=== PATIENT | male | born 1940 | race Caucasian/White ===

== ENCOUNTER 2020-12-16 10:43 | Emergency (ER) | payer MEDICARE, SELFPAY ==
[2020-12-16 11:02] VITALS: BP 111/67; PULSE 70; RESP 22; TEMP 36.7; O2SAT 99; BMI 35.4
--- NOTE | 2020-12-16 11:14 | ECG_ITS ---
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 Measurements Intervals [place] Rate: 66 P: 204 TX: 202 QRS: 227 QRSD: 104 T: -79 QT: 393 QTc: 413 Interpretive Statements ATRIAL FIBRILLATION POSSIBLE RIGHT VENTRICULAR HYPERTROPHY [SOME/ALL OF: PROMINENT R IN V1, LATE TRANSITION, RAD, SOM, SSS] INFERIOR MYOCARDIAL INFARCTION , OF INDETERMINATE AGE [40+ ms Q WAVE AND/OR ST/T ABNORMALITY IN II/aVF] No previous ECG available for comparison Electronically Signed On 12-16-2020 18:25:01 CDT by Ousmane Rowan M.D. [id number]
--- NOTE | 2020-12-16 11:15 | ED_ITS ---
HPI - Chest Pain General: Chief Complaint: Chest Pain Stated Complaint: Chest Pain Time Seen by Provider: 12/16/20 11:03 Source: patient and family () Mode of arrival: ambulatory Limitations: no limitations History of Present Illness: HPI narrative: This is a 80-year-old male with a history of hypertension, congestive heart failure, valvular heart disease who presents to the emergency department with complaints of chest pain started about 3 days ago. Pain is retrosternal radiates to both shoulders and between his shoulder blades. Also radiates to the left side of his chest. Pain is intermittent and is not improving. He has taken several sublingual nitroglycerin tablets and it helps with the pain temporarily. He denies diaphoresis, nausea or vomiting. He also has a headache. He has no prior history of [place]. MD complaint: chest pain Onset (ago): day(s) (3) Timing of current episode: episodic Onset: during rest Pain location: substernal Pain radiation: back, left shoulder and right shoulder Severity: moderate Quality: heaviness Relieving factors: nitroglycerin Exacerbating factors: nothing Associated symptoms: Deny abdominal pain, diaphoresis, dyspnea, fever(s), leg edema, nausea, palpitations, sense of impending doom, syncope or vomiting Treatment prior to arrival: nitroglycerin Review of Systems General: Reports: 10 or more systems reviewed and unremarkable except in HPI and below Const: Denies: fever(s) or diaphoresis Card: Denies: palpitations or syncope Resp: Denies: dyspnea GI: Denies: abdominal pain, nausea or vomiting Physical Exam Const: COMMON NORMALS: no acute distress, average body habitus, patient oriented x3, no limitations, healthy appearing, alert and well nourished HENMT: COMMON NORMALS: normocephalic, atraumatic and moist oral mucous membranes HEAD & SCALP: normocephalic and atraumatic Neck/C-Spine: COMMON NORMALS: no meningeal signs and no JVD Resp: COMMON NORMALS: normal respiratory effort, No retractions, No use of accessory muscles, clear to auscultation bilaterally and percussion normal AUSCULTATION: clear to auscultation bilaterally PERCUSSION: percussion normal Cardio: COMMON NORMALS: no JVD, regular rate, regular rhythm, S1 normal heart sound present, S2 normal heart sound present, No gallops present (Cardio), No clicks present (Cardio), No murmurs present (Cardio), No rub (Cardio) and Peripheral pulses 2+ throughout RATE: regular rate RHYTHM: regular rhythm HEART SOUNDS: S1 normal heart sound present and S2 normal heart sound present PERIPHERAL PULSES: Peripheral pulses 2+ throughout GI: COMMON NORMALS: Normal to inspection, nondistended, normoactive bowel sounds present, Soft to palpation, non-tender, No hepatosplenomegaly present, no masses and no bruits PALPATION: Yes Soft to palpation and Yes No hepatosplenomegaly present Extremity: COMMON NORMALS: normal to inspection, full ROM, capillary refill normal, no calf tenderness and no pedal edema Neuro: COMMON NORMALS: patient oriented x3 SENSORIUM/ORIENTATION: Yes alert MENINGEAL SIGNS: Yes no meningeal signs Skin: COMMON NORMALS: no rashes or lesions noted, no wounds, turgor normal, no jaundice, no petechiae and no mottling GENERAL SKIN EXAM: no rashes or lesions noted and turgor normal Course ED course: 1228: Discussed the patient with Dr. Rowan, cutting and creasing press operator. He advised that the patient be anticoagulated and admitted to the hospitalist service and he will evaluate the patient as a consult. 1230: Discussed the patient with Dr. Lozada, hospitalist and he kindly accepted the patient to his service. 1245: Discussed the patient's lab and imaging findings with the patient and his , also discussed my conversations with the hospitalist and the cutting and creasing press operator. The patient and his wants the patient transferred to [facility] in [place] as that is where his cutting and creasing press operator is located. He would love to continue his care there which I think is reasonable. 1300: Discussed the patient with Ken at [facility] transfer center, he will contact the cutting and creasing press operator to hospitalist and return my call. 1311: Ken from the transfer center at [facility] called back. He states that the cutting and creasing press operator think they will admit the patient but he would want to know the results of the 2-hour troponin, results of the CTA of his chest and to also let the patient know that his cutting and creasing press operator, Dr. Gross, who is not on-call and will not see him during his hospital stay. 1315: Updated the patient and his on my conversation with the [facility] transfer center. Explained to them that their cutting and creasing press operator will not see him during his hospital stay. He voiced understanding and they are still in agreement with the plan to transfer. 1432: Discussed the patient with SANJANA Arias for the cardiology group at [facility] in [place]. She believes the patient can be admitted to their service, the admitting physician will be Dr. Batista. Vital Signs: Vital signs: Vital Signs Temperature 98.0 F 12/16/20 11:02 Pulse Rate 67 12/16/20 16:01 Respiratory Rate 18 12/16/20 16:01 Blood Pressure 102/65 12/16/20 16:01 Pulse Oximetry 97 12/16/20 16:01 MDM - Chest Pain MDM Narrative: Medical decision making narrative: This 80-year-old male presented to the emergency department with a 3-day history of chest pain. Chest pain started when he was splitting wood. In the emergency department evaluation is consistent with a non-STEMI with a significantly elevated troponin. He was to be admitted in this facility but the patient and his wanted to be transferred to [facility] which is where his cutting and creasing press operator is and is where he obtains his care. The patient is therefore transferred to [facility] for further evaluation and management. Medical Records: Attestation: I reviewed the patient's medical records. Lab Data: Attestation: I reviewed the patient's lab results. Labs: Lab Results 12/16/20 12/16/20 12/16/20 Range/Units 11:22 11:22 11:22 WBC 7.2 (4.0-10.0) 10^3/ uL RBC 4.32 (4.1-5.3) 10^6/u L Hgb 11.4 L (11.7-16.6) g/dL Hct 36.9 L (42.0-52.0) % MCV 85.4 (80-94) fL MCH 26.4 L (28.0-34.0) pg MCHC 30.9 (30.0-36.0) g/dL RDW 14.4 (12.1-15.1) % Plt Count 348 (130-400) 10^3/c mm MPV 9.3 (7.4-10.4) fL Neut % (Auto) 69.5 % Lymph % (Auto) 15.5 % [place] % (Auto) 10.1 % Eos % (Auto) 3.5 % Baso % (Auto) 1.0 % Neut # (Auto) 5.03 (1.8-7.7) 10^3/u L Lymph # (Auto) 1.1 (0.8-4.8) 10^3/u L [place] # (Auto) 0.7 (0.2-0.9) 10^3/u L Eos # (Auto) 0.3 (0.0-0.8) 10^3/u L Baso # (Auto) 0.1 (0.0-0.1) 10^3/u L Nucleated RBC % (a uto) 0 % Nucleated RBCs # 0.0 /100WBC PT 13.90 (12.1-14.9) SECO NDS INR 1.04 (0.8-1.2) D-Dimer 1.23 H (0-0.59) ug/mIFE U Sodium 136 (136-145) mmol/L Potassium 4.8 (3.5-5.1) mmol/L Chloride 101 (98-107) mmol/L Carbon Dioxide 26 (22-29) mmol/L Anion Gap 13.8 (5-19) BUN 22 (8-23) mg/dL Creatinine 1.4 H (0.7-1.2) mg/dL GFR Calculation Not Reportable Glucose 263 H (65-115) mg/dL Calculated Osmolal ity 294 (285-295) mOsm/k g Calcium 8.9 (8.5-10.5) mg/dL Total Bilirubin 0.3 (0.15-1.2) mg/dL AST 16 (0-40) U/L ALT 11 (0-41) U/L Alkaline Phosphata se 87 (40-130) IU/L Troponin T Baselin e (0-15) ng/L Troponin T 120 Min marisa (0-15) ng/L Delta Troponin T (0-10) ABS# NT-Pro-B Natriuret Pep 1752 H (0-450) pg/mL Total Protein 6.6 (6.6-8.7) g/dL Albumin 4.0 (3.5-5.2) g/dL Globulin 2.6 (1.3-4.6) g/dL Lipase 17 (13-60) U/L SARS-CoV-2 Ag (Rap id) (Negative) 12/16/20 12/16/20 12/16/20 Range/Units 11:22 13:15 13:19 WBC (4.0-10.0) 10^3/ uL RBC (4.1-5.3) 10^6/u L Hgb (11.7-16.6) g/dL Hct (42.0-52.0) % MCV (80-94) fL MCH (28.0-34.0) pg MCHC (30.0-36.0) g/dL RDW (12.1-15.1) % Plt Count (130-400) 10^3/c mm MPV (7.4-10.4) fL Neut % (Auto) % Lymph % (Auto) % [place] % (Auto) % Eos % (Auto) % Baso % (Auto) % Neut # (Auto) (1.8-7.7) 10^3/u L Lymph # (Auto) (0.8-4.8) 10^3/u L [place] # (Auto) (0.2-0.9) 10^3/u L Eos # (Auto) (0.0-0.8) 10^3/u L Baso # (Auto) (0.0-0.1) 10^3/u L Nucleated RBC % (a uto) % Nucleated RBCs # /100WBC PT (12.1-14.9) SECO NDS INR (0.8-1.2) D-Dimer (0-0.59) ug/mIFE U Sodium (136-145) mmol/L Potassium (3.5-5.1) mmol/L Chloride (98-107) mmol/L Carbon Dioxide (22-29) mmol/L Anion Gap (5-19) BUN (8-23) mg/dL Creatinine (0.7-1.2) mg/dL GFR Calculation Glucose (65-115) mg/dL Calculated Osmolal ity (285-295) mOsm/k g Calcium (8.5-10.5) mg/dL Total Bilirubin (0.15-1.2) mg/dL AST (0-40) U/L ALT (0-41) U/L Alkaline Phosphata se (40-130) IU/L Troponin T Baselin e 427 H* (0-15) ng/L Troponin T 120 Min marisa 411.4 H (0-15) ng/L Delta Troponin T -15.6 L (0-10) ABS# NT-Pro-B Natriuret Pep (0-450) pg/mL Total Protein (6.6-8.7) g/dL Albumin (3.5-5.2) g/dL Globulin (1.3-4.6) g/dL Lipase (13-60) U/L SARS-CoV-2 Ag (Rap id) Negative (Negative) Imaging Data^: CTA Chest: Attestation: I personally reviewed and interpreted this imaging study as follows: Radiologist's impression: [employer] [id number] Scan ReportSigned Patient: Avni Graves AUnit #: [id number]: 1940cct#:[id number]/Sex: 80 / MADM Date: 12/16/20Loc: ERRoom/Bed:Attending Dr: Ordering Provider/Ordering MD: Elenita Hernadez MD, [facility] Date of Service: 12/16/20 Procedure(s): CT angio chest PE protcl [id number] Accession Number(s): [id number] Report Number: [id number] PROCEDURE INFORMATION: Exam: CTA Chest With Contrast Exam date and time: 12/16/2020 12:25 PM Age: 80 years old Clinical indication: Shortness of breath; Chest pressure; Patient HX: Chest pain with SOB. Elevated ddimer. History of lymphoma and bladder cancer. ; Additional info: Chest pain, SOB TECHNIQUE: Imaging protocol: Computed tomographic angiography of the chest with contrast. 3D rendering (Not supervised by radiologist): MIP and/or 3D reconstructed images were created by the technologist. Radiation optimization: All CT scans at this facility use at least one of these dose optimization techniques: automated exposure control; mA and/or kV adjustment per patient size (includes targeted exams where dose is matched to clinical indication); or iterative reconstruction. Contrast material: VISI 320; Contrast volume: 69 ml; Contrast route: INTRAVENOUS (IV); COMPARISON: CT Chest/Abdomen/Pelvis w IV* 05/03/2017 1:21 PM RADIATION DOSE METRICS: Total DLP (mGy-cm): 984.98 FINDINGS: Pulmonary arteries: Normal. No pulmonary emboli. Aorta: There is calcification of the aortic arch. There is no aneurysm. Lungs: Small benign calcified lymph nodes are present in the pulmonary adriana. A small benign calcified granulomas present in the right upper lobe.. Pleural spaces: Unremarkable. No pneumothorax. No pleural effusion. Heart: The heart is not enlarged. There is calcification of the coronary arteries. Small pericardial effusion. The aortic valve is calcified. Lymph nodes: There are multiple benign calcified mediastinal lymph nodes. Other mildly prominent lymph nodes are probably reactive in nature. Gallbladder and bile ducts: Cholecystectomy. Small amount of air is present in the bile ducts in the left hepatic lobe probably from previous sphincter manipulation. Kidneys and ureters: Stable benign cysts are present in the upper pole of the right kidney. Bones/joints: Unremarkable. No acute fracture. Soft tissues: Unremarkable. CT/CT angio chest PE protcl [id number] IMPRESSION: 1. No evidence of pulmonary embolus or aortic aneurysm. 2. Coronary artery calcification. Calcified aortic valve. 3. Small pericardial effusion. 4. Benign calcified granulomas disease. Radiation Dose CTDIVOL = (mGy): DLP = 984.98 (mGy-cm) Dictated By:Maia Saavedra By:aMia Saavedra Date/Time:12/16/20 1313DD/ 1312 CXR: Attestation: I personally reviewed and interpreted this imaging study as follows: Radiologist's impression: [address] [id number] ReportSigned Patient: Avni Graves AUnit #: [id number]: 1Acct#:[id number]/Sex: 80 / MADM Date: 12/16/20Loc: ERRoom/Bed:Attending Dr: Ordering Provider/Ordering MD: Elenita Hernadez MD, [facility] Date of Service: 12/16/20 Procedure(s): XR chest 1V portable [id number] Accession Number(s): [id number] Report Number: [id number] PROCEDURE INFORMATION: Exam: XR Chest Exam date and time: 12/16/2020 11:39 AM Age: 80 years old Clinical indication: Chest wall pain; Patient HX: Gallbladder surgery; Additional info: Cp TECHNIQUE: Imaging protocol: XR of the chest. Views: 1 view. COMPARISON: CT Chest/Abdomen/Pelvis w IV* 05/03/2017 1:21 PM FINDINGS: Lungs: Unremarkable. No consolidation. Pleural spaces: Unremarkable. No pleural effusion. No pneumothorax. Heart/Mediastinum: Unremarkable. No cardiomegaly. Bones/joints: Unremarkable. XR/XR chest 1V portable [id number] IMPRESSION: No acute findings. Dictated By:Maia Saavedra By:Maia Saavedra Date/Time:12/16/20 1306DD/ 1304 EKG Data^: EKG 1: Attestation: I personally reviewed and interpreted this EKG as follows: EKG interpretation date: 12/16/20 EKG interpretation time: 11:41 Prior EKG tracings: not available for review Interpretation: Ectopic atrial rhythm with frequent supraventricular premature complexes. Heart rate [address] changes. EKG 2: Attestation: I personally reviewed and interpreted this EKG as follows: EKG interpretation date: 12/16/20 EKG interpretation time: 12:59 Prior EKG tracings: available for review Interpretation: Sinus rhythm with first-degree AV block. Heart rate [address] changes. Critical Care Time Critical Care Time: Critical Care Time: Yes Total Critical Care Time: 60 Attestation: This case had a high probability of a clinically significant, sudden, or life threatening deterioration of this patient's condition which required my full and direct attention, intervention and personal management. Discharge Plan Discharge Patient Disposition: Xfer Short-Term Hosp Clinical Impression: Non-ST elevation [place] (NSTEMI) Condition: Stable Discharge Orders: Transfer Out of Facility (Order); Ordered 12/16/20 Ordered By: Elenita Hernadez Referrals: Lidia Infante MD [Primary Care Provider] - Coding Level of Care Code ED Psychiatric Rn for Chg Fwd Exam Comprehensive
[2020-12-16 11:28] VITALS: BP 111/67; PULSE 73; RESP 22; O2SAT 97
[2020-12-16 11:36] LABS: Basophils # 0.1 10^3/uL (0.0-0.1); Eosinophils # 0.3 10^3/uL (0.0-0.8); Eosinophils % 3.5 %; Hematocrit 36.9 % (42.0-52.0); Hemoglobin 11.4 g/dL (11.7-16.6); Lymphocytes # 1.1 10^3/uL (0.8-4.8); Lymphocytes % 15.5 %; Mean Corpuscular HGB Conc 30.9 g/dL (30.0-36.0); Mean Corpuscular Hemoglobin 26.4 pg (28.0-34.0); Mean Corpuscular Volume 85.4 fL (80-94); Mean Platelet Volume 9.3 fL (7.4-10.4); Monocytes # 0.7 10^3/uL (0.2-0.9); Monocytes % 10.1 %; Neutrophils # 5.03 10^3/uL (1.8-7.7); Neutrophils % 69.5 %; Nucleated Red Blood Cells % 0 %; Platelet Count 348 10^3/cmm (130-400); Red Blood Count 4.32 10^6/uL (4.1-5.3); Red Cell Distribution Width 14.4 % (12.1-15.1); White Blood Count 7.2 10^3/uL (4.0-10.0)
[2020-12-16] MEDS: aspirin 81 mg Chew Tablet 324 MG PO (11:41)
[2020-12-16] MEDS: nitroglycerin 1 gm/inch oint Pkt 1 INCH TOPICAL (11:42)
[2020-12-16 11:55] LABS: INR 1.04 (0.8-1.2)
[2020-12-16 11:57] LABS: D Dimer 1.23 ug/mIFEU (0-0.59)
--- NOTE | 2020-12-16 12:00 | CTR_ITS ---
PROCEDURE INFORMATION: Exam: CTA Chest With Contrast Exam date and time: 12/16/2020 12:25 PM Age: 80 years old Clinical indication: Shortness of breath; Chest pressure; Patient HX: Chest pain with SOB. Elevated ddimer. History of lymphoma and bladder cancer. ; Additional info: Chest pain, SOB TECHNIQUE: Imaging protocol: Computed tomographic angiography of the chest with contrast. 3D rendering (Not supervised by radiologist): MIP and/or 3D reconstructed images were created by the technologist. Radiation optimization: All CT scans at this facility use at least one of these dose optimization techniques: automated exposure control; mA and/or kV adjustment per patient size (includes targeted exams where dose is matched to clinical indication); or iterative reconstruction. Contrast material: VISI 320; Contrast volume: 69 ml; Contrast route: INTRAVENOUS (IV); COMPARISON: CT Chest/Abdomen/Pelvis w IV* 05/03/2017 1:21 PM RADIATION DOSE METRICS: Total DLP (mGy-cm): 984.98 FINDINGS: Pulmonary arteries: Normal. No pulmonary emboli. Aorta: There is calcification of the aortic arch. There is no aneurysm. Lungs: Small benign calcified lymph nodes are present in the pulmonary adriana. A small benign calcified granulomas present in the right upper lobe.. Pleural spaces: Unremarkable. No pneumothorax. No pleural effusion. Heart: The heart is not enlarged. There is calcification of the coronary arteries. Small pericardial effusion. The aortic valve is calcified. Lymph nodes: There are multiple benign calcified mediastinal lymph nodes. Other mildly prominent lymph nodes are probably reactive in nature. Gallbladder and bile ducts: Cholecystectomy. Small amount of air is present in the bile ducts in the left hepatic lobe probably from previous sphincter manipulation. Kidneys and ureters: Stable benign cysts are present in the upper pole of the right kidney. Bones/joints: Unremarkable. No acute fracture. Soft tissues: Unremarkable. CT/CT angio chest PE protcl [id number] IMPRESSION: 1. No evidence of pulmonary embolus or aortic aneurysm. 2. Coronary artery calcification. Calcified aortic valve. 3. Small pericardial effusion. 4. Benign calcified granulomas disease. Radiation Dose CTDIVOL = (mGy): DLP = 984.98 (mGy-cm)
[2020-12-16 12:04] VITALS: BP 102/65; PULSE 69; RESP 15; O2SAT 96
[2020-12-16 12:04] LABS: Alanine Aminotransferase 11 U/L (0-41); Alkaline Phosphatase 87 IU/L (40-130); Anion Gap 13.8 (5-19); Aspartate Amino Transferase 16 U/L (0-40); Blood Urea Nitrogen 22 mg/dL (8-23); Calcium 8.9 mg/dL (8.5-10.5); Carbon Dioxide 26 mmol/L (22-29); Chloride 101 mmol/L (98-107); Globulin 2.6 g/dL (1.3-4.6); Glucose 263 mg/dL (65-115); Lipase 17 U/L (13-60); NT Pro B Type Natriuretic Pept 1752 pg/mL (0-450); Osmolality Calculated 294 mOsm/kg (285-295); Potassium 4.8 mmol/L (3.5-5.1); Sodium 136 mmol/L (136-145); Total Bilirubin 0.3 mg/dL (0.15-1.2); Total Protein 6.6 g/dL (6.6-8.7)
[2020-12-16 12:25] LABS: Troponin(5th) Baseline 427 ng/L (0-15)
[2020-12-16] MEDS: iodixanol 320 mg/mL 100mL Btl IV (12:38)
[2020-12-16] MEDS: enoxaparin 120 mg/0.8 mL Syringe 110 MG SUBCUT (12:48)
[2020-12-16 12:49] VITALS: BP 102/65; PULSE 70; RESP 20; O2SAT 98
--- NOTE | 2020-12-16 13:14 | ECG_ITS ---
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 Measurements Intervals [place] Rate: 69 P: -13 [place]: 220 QRS: -14 QRSD: 101 T: 46 QT: 380 QTc: 410 Interpretive Statements SINUS RHYTHM WITH FIRST DEGREE AV BLOCK No previous ECG available for comparison Electronically Signed On 12-16-2020 18:25:23 CDT by Ousmane Rowan M.D. [id number]
[2020-12-16 13:46] LABS: SARS Covid-2 Antigen Negative (Negative)
[2020-12-16 14:05] LABS: Troponin 5 2HR 411.4 ng/L (0-15); Troponin 5 2HR Delta -15.6 ABS# (0-10)
[2020-12-16] MEDS: ticagrelor 90 mg Tablet 180 MG PO (15:40)
[2020-12-16 16:01] VITALS: BP 102/65; PULSE 67; RESP 18; O2SAT 97
== END 2020-12-16 16:48 | disposition short-term general hospital (02) ==
PROVIDERS: Emergency Provider Family Medicine; PCP Family Medicine
DX: I21.4 Non-ST elevation (NSTEMI) myocardial infarction (principal)
CPT/HCPCS: 36415; 71045; 71275; 80053; 83690; 83880; 84484; 85025; 85378; 85610; 87426; 93005; 96372; 99285; J1650; Q9967

== ENCOUNTER 2021-08-23 22:17 | Inpatient (IN) | payer MEDICARE, SELFPAY ==
--- NOTE | 2021-08-23 23:54 | CTR_ITS ---
PROCEDURE INFORMATION: Exam: CT Abdomen And Pelvis With Contrast Exam date and time: 08/23/2021 11:54 PM Age: 81 years old Clinical indication: Other: Blood in stool; Abdominal pain; Generalized; Prior surgery; Surgery date: 6+ months; Surgery type: Bladder, hernia, gb; Additional info: Abd pain gi bleeding TECHNIQUE: Imaging protocol: Computed tomography of the abdomen and pelvis with contrast. Radiation optimization: All CT scans at this facility use at least one of these dose optimization techniques: automated exposure control; mA and/or kV adjustment per patient size (includes targeted exams where dose is matched to clinical indication); or iterative reconstruction. Contrast material: VISI; Contrast volume: 95 ml; Contrast route: INTRAVENOUS (IV); COMPARISON: CT Chest/Abdomen/Pelvis w IV* 05/03/2017 1:21 PM RADIATION DOSE METRICS: Total DLP (mGy-cm): 1800.98 FINDINGS: Tubes, catheters and devices: Anterior abdominal wall mesh consistent with previous surgery. Heart: Stable severe calcified coronary artery disease. Liver: Stable low-attenuation lesion in the liver measuring > 5mm which is incompletely characterized on this exam. Gallbladder and bile ducts: Stable cholecystectomy. Pancreas: Normal. No ductal dilation. Spleen: Normal. No splenomegaly. Adrenal glands: Normal. No mass. Kidneys and ureters: Stable multiple simple right renal cysts with the largest measuring > 1.0 cm. Stable multiple simple left renal cysts with the largest measuring > 1.0 cm. Stomach and bowel: Unremarkable. No obstruction. No mucosal thickening. Appendix: No evidence of appendicitis. Intraperitoneal space: Unremarkable. No free air. No significant fluid collection. Vasculature: Unremarkable. No abdominal aortic aneurysm. Lymph nodes: Unremarkable. No enlarged lymph nodes. Urinary bladder: Unremarkable as visualized. Reproductive: Nonspecific prostate calcifications. Enlarged prostate greater than or equal to 5.0 cm; correlation with PSA levels is recommended. Bones/joints: Unremarkable. No acute fracture. Soft tissues: Unremarkable. CT/CT abdomen pelvis w con* [id number] IMPRESSION: 1. Enlarged prostate greater than or equal to 5.0 cm; correlation with PSA levels is recommended. 2. No active bleeding identified at time of this exam.
[2021-08-23 23:55] VITALS: BP 148/94; PULSE 108; RESP 16; TEMP 37.2; O2SAT 96; BMI 34.9
--- NOTE | 2021-08-23 23:56 | ECG_ITS ---
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 Measurements Intervals [place] Rate: 108 P: 80 MN: 212 QRS: -6 QRSD: 89 T: 46 QT: 312 QTc: 419 Interpretive Statements SINUS TACHYCARDIA WITH FIRST DEGREE AV BLOCK INFERIOR MYOCARDIAL INFARCTION , PROBABLY OLD [40+ ms Q WAVE AND/OR ST/T ABNORMALITY IN II/aVF] Compared to ECG 12/16/2020 12:58:35 Myocardial infarct finding now present Sinus rhythm no longer present Electronically Signed On 08-24-2021 16:59:06 APPLICATIONS SUPPORT LEAD by Emelina Lamb M.D. [id number]
[2021-08-24] VITALS (21 sets, daily range): BP systolic 102–165; BP diastolic 60–106; PULSE 77–105; RESP 13–26; TEMP 36.3–37.2; O2SAT 93–99
[2021-08-24] MEDS: ondansetron 2 mg/ML SDV 2 mL 4 MG IVP ×2 (00:27→02:13)
[2021-08-24] MEDS: sodium chloride 0.9% 1,000 ML 999 ML IV (00:27)
[2021-08-24 00:34] LABS: Basophils # 0.1 10^3/uL (0.0-0.1); Basophils % 0.6 %; Eosinophils # 0.2 10^3/uL (0.0-0.8); Eosinophils % 2.3 %; Hemoglobin 8.1 g/dL (11.7-16.6); Lymphocytes # 1.5 10^3/uL (0.8-4.8); Lymphocytes % 15.9 %; Mean Corpuscular Hemoglobin 23.6 pg (28.0-34.0); Mean Corpuscular Volume 78.7 fl (80-94); Monocytes % 10.6 %; Neutrophils # 6.56 10^3/uL (1.8-7.7); Neutrophils % 70.3 %; Nucleated Red Blood Cells % 0 %; Platelet Count 429 10^3/cmm (130-400); Red Blood Count 3.43 10^6/uL (4.1-5.3); Red Cell Distribution Width 16.5 % (12.1-15.1); White Blood Count 9.3 10^3/uL (4.0-10.0)
[2021-08-24 00:47] LABS: Lactate (Lactic Acid level) 1.5 mmol/L (0.5-2.2)
[2021-08-24 00:49] LABS: INR 1.06 (0.8-1.2)
[2021-08-24 00:50] LABS: Partial Thromboplastin Time 27.9 SECONDS (23.9-36.7)
[2021-08-24 00:54] LABS: Alanine Aminotransferase 9 U/L (0-41); Albumin Level 4.1 g/dL (3.5-5.2); Alkaline Phosphatase 83 IU/L (40-130); Anion Gap 17.4 (5-19); Aspartate Amino Transferase 14 U/L (0-40); Blood Urea Nitrogen 25 mg/dL (8-23); Calcium 8.8 mg/dL (8.5-10.5); Carbon Dioxide 22 mmol/L (22-29); Chloride 102 mmol/L (98-107); Creatinine Clr Calc Pharmacy 57.4794; Globulin 2.5 g/dL (1.3-4.6); Glucose 197 mg/dL (65-115); Lipase 15 U/L (13-60); Osmolality Calculated 292 mOsm/kg (285-295); Potassium 5.4 mmol/L (3.5-5.1); Sodium 136 mmol/L (136-145); Total Bilirubin 0.3 mg/dL (0.15-1.2); Total Protein 6.6 g/dL (6.6-8.7)
[2021-08-24] MEDS: iodixanol 320 mg/mL 100mL Btl IV (01:43)
--- NOTE | 2021-08-24 01:47 | ED_ITS ---
HPI - GI Bleed General: Chief complaint: GI Bleed Stated complaint: GI BLEED Time Seen by Provider: 08/23/21 23:54 Source: patient History of Present Illness: 81-year-old gentleman with a history of GI bleeding in the more distant past. He presents stating that he has had 4 episodes of bloody diarrhea today. He notes the blood is bright red, without significant clots. He complains of belly pain and distention as well. No vomiting. He has been nauseated. No fever. MD complaint: gross hematochezia Onset (ago): hour(s) Pain Consistency: constant Severity: moderate Relieving factors: none Exacerbating factors: none Context: history of GI bleed Associated symptoms: Reports abdominal pain and nausea; Denies chills, easy bruising, fever(s), headache(s) or vomiting Review of Systems Const: Denies: fever(s) or chills Eyes: Denies: change in vision ENMT: Denies: throat pain Card: Denies: chest pain or palpitations Resp: Denies: dyspnea or productive cough GI: Reports: abdominal pain and nausea; Denies: vomiting Neuro: Denies: headache(s) Martell/Lymph: Denies: easy bruising Physical Exam Const: COMMON NORMALS: no acute distress HENMT: COMMON NORMALS: normocephalic and atraumatic HEAD & SCALP: normocephalic and atraumatic FACE & SINUS: normal facial exam Chest: COMMONS NORMALS: normal inspection of the chest Resp: COMMON NORMALS: normal respiratory effort, No use of accessory muscles and clear to auscultation bilaterally AUSCULTATION: clear to auscultation bilaterally Cardio: COMMON NORMALS: regular rate and regular rhythm RATE: regular rate RHYTHM: regular rhythm GI: COMMON NORMALS: Soft to palpation INSPECTION: Yes abdominal distension AUSCULTATION: Yes normoactive bowel sounds PALPATION: Yes Soft to palpation and Yes Tenderness to palpation present (GI) (diffuse) Neuro: HARJIT COMA SCALE: document GCS findings Mohawk coma scale eye opening: Spontaneous Mohawk coma scale verbal response: Orientated Harjit coma scale motor response: Obey commands Harjit coma scale total score: 15 Course Consultations: Consultation #1: sang Time: 02:16 Vital Signs: Vital signs: Vital Signs Temperature 98.9 F 08/23/21 23:55 Pulse Rate 105 H 08/24/21 00:33 Respiratory Rate 19 H 08/24/21 00:33 Blood Pressure 141/85 08/24/21 00:33 Pulse Oximetry 93 08/24/21 00:33 MDM - GI Bleed Medical Decision Making 81-year-old male with abdominal pain, distention, and gastrointestinal bleeding that is bright red. Hemoglobin is down to 8.1. Previous hemoglobin was 11.4. Platelet count is mildly high. Potassium mildly high. BUN is 25. CT does not reveal a source of bleeding. She does no mucosal thickening. Because inside of bleeding unknown at this point. With significantly low H&H, and evidence of bleeding in the emergency department, he is crossmatched and will be transfused 2 units. Protonix IV has been given. He will be admitted. Lab Data : 08/24/21 00:11 08/24/21 00:11 Radiology Impressions Abdomen/Pelvis CT 08/23/21 23:54 IMPRESSION: 1. Enlarged prostate greater than or equal to 5.0 cm; correlation with PSA levels is recommended. 2. No active bleeding identified at time of this exam. Laboratory Results WBC 9.3 10^3/uL (4.0-10.0) 08/24/21 00:11 RBC 3.43 10^6/uL (4.1-5.3) L 08/24/21 00:11 Hgb 8.1 g/dL (11.7-16.6) L 08/24/21 00:11 Hct 27.0 % (42.0-52.0) L 08/24/21 00:11 MCV 78.7 fl (80-94) L 08/24/21 00:11 MCH 23.6 pg (28.0-34.0) L 08/24/21 00:11 MCHC 30.0 g/dL (30.0-36.0) 08/24/21 00:11 RDW 16.5 % (12.1-15.1) H 08/24/21 00:11 Plt Count 429 10^3/cmm (130-400) H 08/24/21 00:11 MPV 9.0 fL (7.4-10.4) 08/24/21 00:11 Neut % (Auto) 70.3 % 08/24/21 00:11 Lymph % (Auto) 15.9 % 08/24/21 00:11 Mclean % (Auto) 10.6 % 08/24/21 00:11 Eos % (Auto) 2.3 % 08/24/21 00:11 Baso % (Auto) 0.6 % 08/24/21 00:11 Neut # (Auto) 6.56 10^3/uL (1.8-7.7) 08/24/21 00:11 Lymph # (Auto) 1.5 10^3/uL (0.8-4.8) 08/24/21 00:11 Mclean # (Auto) 1.0 10^3/uL (0.2-0.9) H 08/24/21 00:11 Eos # (Auto) 0.2 10^3/uL (0.0-0.8) 08/24/21 00:11 Baso # (Auto) 0.1 10^3/uL (0.0-0.1) 08/24/21 00:11 Nucleated RBC % (auto) 0 % 08/24/21 00:11 Nucleated RBCs # 0.0 /100WBC 08/24/21 00:11 PT 14.10 SECONDS (12.1-14.9) 08/24/21 00:26 INR 1.06 (0.8-1.2) 08/24/21 00:26 APTT 27.9 SECONDS (23.9-36.7) 08/24/21 00:26 Sodium 136 mmol/L (136-145) 08/24/21 00:11 Potassium 5.4 mmol/L (3.5-5.1) H 08/24/21 00:11 Chloride 102 mmol/L (98-107) 08/24/21 00:11 Carbon Dioxide 22 mmol/L (22-29) 08/24/21 00:11 Anion Gap 17.4 (5-19) 08/24/21 00:11 BUN 25 mg/dL (8-23) H 08/24/21 00:11 Creatinine 1.2 mg/dL (0.7-1.2) 08/24/21 00:11 GFR Calculation Not Reportable 08/24/21 00:11 Glucose 197 mg/dL (65-115) H 08/24/21 00:11 Calculated Osmolality 292 mOsm/kg (285-295) 08/24/21 00:11 Lactate 1.5 mmol/L (0.5-2.2) 08/24/21 00:11 Calcium 8.8 mg/dL (8.5-10.5) 08/24/21 00:11 Total Bilirubin 0.3 mg/dL (0.15-1.2) 08/24/21 00:11 AST 14 U/L (0-40) 08/24/21 00:11 ALT 9 U/L (0-41) 08/24/21 00:11 Alkaline Phosphatase 83 IU/L (40-130) 08/24/21 00:11 Total Protein 6.6 g/dL (6.6-8.7) 08/24/21 00:11 Albumin 4.1 g/dL (3.5-5.2) 08/24/21 00:11 Globulin 2.5 g/dL (1.3-4.6) 08/24/21 00:11 Lipase 15 U/L (13-60) 08/24/21 00:11 Urine Color Yellow (Yellow) 08/24/21 01:42 Urine Appearance Clear (CLEAR) 08/24/21 01:42 Urine pH 5 (5-7) 08/24/21 01:42 Ur Specific [place] 1.020 (1.005-1.030) 08/24/21 01:42 Urine Protein Neg (Negative) 08/24/21 01:42 Urine Glucose (UA) Norm (Normal) 08/24/21 01:42 Urine Ketones Negative (Negative) 08/24/21 01:42 Urine Blood 3+ (Negative) H 08/24/21 01:42 Urine Nitrate Negative (Negative) 08/24/21 01:42 Urine Bilirubin Neg (Negative) 08/24/21 01:42 Urine Urobilinogen Norm mg/dL (Negative) 08/24/21 01:42 Ur Leukocyte Esterase Negative (Negative) 08/24/21 01:42 Amorphous Sediment Not Reportable 08/24/21 01:42 Blood Type O Positive 08/23/21 00:26 Rho(D) Type Positive 08/23/21 00:26 Antibody Screen Negative 08/23/21 00:26 Crossmatch See Detail 08/23/21 00:26 Discharge Plan Discharge Patient Disposition: Admitted As Inpatient Clinical Impression: Lower gastrointestinal hemorrhage, Acute blood loss anemia Condition: Stable Prescriptions: No Action losartan 50 mg tablet 50 mg PO DAILY@1200 0RF furosemide 40 mg tablet 40 mg PO DAILY@0900 0RF terazosin 5 mg capsule 5 mg PO BEDTIME@2200 0RF clonidine HCl 0.1 mg tablet 0.1 mg PO TID@0900,1400,2200 0RF trazodone 50 mg tablet 50 mg PO BEDTIME@2200 0RF metoprolol tartrate 100 mg tablet 100 mg PO BID@0900,2200 0RF isosorbide mononitrate 30 mg tablet extended release 24 hr 30 mg PO DAILY@0900 0RF simvastatin 10 mg tablet 10 mg PO DAILY@2200 0RF spironolactone 25 mg tablet 25 mg PO DAILY@0900 0RF glimepiride 1 mg tablet 1 mg PO DAILY@0900 0RF Klor-Con M20 20 mEq tablet,ER particles/crystals 20 meq PO DAILY@2200 0RF amitriptyline 10 mg tablet 10 mg PO BEDTIME@2200 0RF pantoprazole 40 mg tablet,delayed release (DR/EC) 40 mg PO BID@0900,2200 0RF nitroglycerin 0.4 mg tablet, sublingual 0.4 mg buccal Q5MIN PRN (Reason: Chest Pain) 0RF montelukast 10 mg tablet 10 mg PO DAILY@2200 0RF metformin 500 mg tablet extended release 24 hr 500 mg PO BID@0900,2200 0RF duloxetine 60 mg capsule,delayed release(DR/EC) 60 mg PO BID@0900,2200 0RF Januvia 100 mg tablet 100 mg PO DAILY@0900 0RF Qvar RediHaler 80 mcg/actuation HFA aerosol breath activated 1 inh INHALATION BID 0RF aspirin 81 mg Tablet,Chewable 81 mg PO DAILY@2200 0RF zinc 50 mg Tablet 50 mg PO DAILY@1200 0RF Vitamin D3 50 mcg (2,000 unit) Tablet 100 mcg PO DAILY@1200 0RF Referrals: Lidia Infante MD [Primary Care Provider] - Coding Level of Care Code ED Plastics Fabricator Or Welder for Chg Fwd Exam Detailed
[2021-08-24] MEDS: pantoprazole 40 mg SDV 80 MG IVP (02:14)
[2021-08-24 02:21] LABS: Add Urine Microscopic? YES; Bilirubin Urine Neg (Negative); Blood Urine 3+ (Negative); Glucose Urine UA Norm (Normal); Ketones Urine Negative (Negative); Leukocyte Esterase Urine Negative (Negative); Nitrate Urine Negative (Negative); Protein Urine Neg (Negative); Urine Appearance Clear (CLEAR); Urine Color Yellow (Yellow); Urobilinogen Urine Norm (Negative); pH Urine 5 (5-7)
[2021-08-24 02:41] LABS: Add Urine Culture? Yes; Bacteria Urine 1+ /hpf; WBC Urine 0-4 /hpf (0-5)
--- NOTE | 2021-08-24 03:00 | P.HP_ITS ---
Providers/Chief Complaint Primary Care Provider: Lidia Infante MD Chief Complaint: GI BLEED History of Present Illness Avni Graves is a 81 year old male with past medical history of, hypertension, diabetes, coronary artery disease Came in with chief complaint of bright red blood per rectum 4-5 episodes started today in the morning, as well as he was also complaining of bloating and nausea. He has prior history of lower GI bleed couple of years back, at that time also he Was observed in the hospital. According to the patient his past colonoscopy has been normal, he exactly do not remember when was the last time colonoscopy was done. He denied any chest pain shortness of breath, abdominal pain vomiting, fever cough. Upon arrival in the ER he was worked up for above-mentioned complaint: Pertinent imaging studies: CT abdomen and pelvis without contrast : No acute finding Pertinent labs: WBC 9.3 , H&H 8.1/ 27 , PLT : 429 , PT /INR : 14/1.06 , serum sodium; 136 , serum potassium-5.4 , BUN/SCR : 25/1.2 Patient was typed and crossmatched for 2 units PRBC. Review of Systems General: Reports: 10 or more systems reviewed and unremarkable except in HPI and below Const: Denies: fever(s), chills, body aches, change in appetite or diaphoresis Card: Denies: palpitations, edema, swelling of feet/ankles, dyspnea on exertion, orthopnea or leg pain with exertion Resp: Denies: dyspnea, productive cough, wheezing or pain on inspiration GI: Denies: abdominal pain, vomiting, diarrhea or constipation : Denies: flank pain or difficulty urinating Musc: Denies: back pain, extremity pain or extremity swelling Neuro: Denies: headache(s), difficulty walking or confusion Medications/Allergies Home Medications Medication Instructions Recorded Confirmed Last Taken Type amitriptyline 10 mg tablet 10 mg PO BEDTIME@219912/16/20 12/16/20 12/15/20 History aspirin 81 mg chewable tablet 81 mg PO DAILY@219912/16/20 12/16/20 12/15/20 History beclomethasone dipropionate 80 1 inh INHALATION BID 12/16/20 12/16/20 12/15/20 History mcg/actuation HFA breath activated aerosol (Qvar RediHaler) cholecalciferol (vitamin D3) 50 100 mcg PO DAILY@1200 12/16/20 12/16/20 12/15/20 History mcg (2,000 unit) tablet (Vitamin D3) clonidine HCl 0.1 mg tablet 0.1 mg PO TID@0900,1400,219912/16/20 12/16/20 12/16/20 History duloxetine 60 mg capsule,delayed 60 mg PO BID@0900,219912/16/20 12/16/20 12/16/20 History release furosemide 40 mg tablet 40 mg PO DAILY@0912/16/20 12/16/20 12/16/20 History glimepiride 1 mg tablet 1 mg PO DAILY@89912/16/20 12/16/20 12/16/20 History isosorbide mononitrate 30 mg 30 mg PO DAILY@0912/16/20 12/16/20 12/16/20 History tablet,extended release 24 hr losartan 50 mg tablet 50 mg PO DAILY@1200 12/16/20 12/16/20 12/15/20 History metformin 500 mg tablet,extended 500 mg PO BID@0900,219912/16/20 12/16/20 12/16/20 History release 24 hr metoprolol tartrate 100 mg tablet 100 mg PO BID@0900,219912/16/20 12/16/20 12/16/20 History montelukast 10 mg tablet 10 mg PO DAILY@219912/16/20 12/16/20 12/15/20 History nitroglycerin 0.4 mg sublingual 0.4 mg BUCCAL Q5MIN PRN 12/16/20 12/16/20 12/16/20 History tablet pantoprazole 40 mg tablet,delayed 40 mg PO BID@0900,219912/16/20 12/16/20 12/16/20 History release potassium chloride 20 mEq 20 meq PO DAILY@219912/16/20 12/16/20 12/15/20 History tablet,extended release(part/cryst) (Klor-Con M) simvastatin 10 mg tablet 10 mg PO DAILY@219912/16/20 12/16/20 12/15/20 History sitagliptin 100 mg tablet (Januvia) 100 mg PO DAILY@0912/16/20 12/16/20 12/16/20 History spironolactone 25 mg tablet 25 mg PO DAILY@0900 12/16/20 12/16/20 12/16/20 History terazosin 5 mg capsule 5 mg PO BEDTIME@219912/16/20 12/16/20 12/15/20 History trazodone 50 mg tablet 50 mg PO BEDTIME@22012/16/20 12/16/20 12/15/20 History zinc 50 mg tablet 50 mg PO DAILY@1200 12/16/20 12/16/20 12/15/20 History Allergies Allergy/AdvReac Type Severity Reaction Status Date / Time No Known Allergies Allergy Verified 12/16/20 12:05 Vitals/I&O/Wt Last Vital Signs Temp 98.9 F 08/23/21 23:55 Pulse 105 H 08/24/21 00:33 Resp 19 H 08/24/21 00:33 BP 141/85 08/24/21 00:33 Pulse Ox 93 08/24/21 00:33 08/23/21 08/23/21 08/24/21 14:59 22:59 06:59 Intake Total 1000 / 1000 Balance 1000 / 1000 Weight last 48 hrs Weight 104.326 kg Physical Exam Const: COMMON NORMALS: patient oriented x3 HENMT: COMMON NORMALS: normocephalic and atraumatic HEAD & SCALP: normocephalic and atraumatic Eye: GENERAL EYE: appearance normal, both eyes and all related structures Chest: COMMONS NORMALS: normal inspection of the chest and normal palpation of entire chest wall CHEST: Yes Symmetrical chest wall rise Resp: COMMON NORMALS: normal respiratory effort, No retractions, No use of accessory muscles and clear to auscultation bilaterally EFFORT & INSPECTION: Yes symmetric chest movement AUSCULTATION: clear to auscultation bilaterally Cardio: COMMON NORMALS: regular rate, regular rhythm, S1 normal heart sound present, S2 normal heart sound present, No gallops present (Cardio), No murmurs present (Cardio), No rub (Cardio) and Peripheral pulses 2+ throughout RATE: regular rate RHYTHM: regular rhythm HEART SOUNDS: S1 normal heart sound present and S2 normal heart sound present PERIPHERAL PULSES: Peripheral pulses 2+ throughout GI: COMMON NORMALS: Normal to inspection, nondistended, normoactive bowel sounds present, Soft to palpation, non-tender, No hepatosplenomegaly present and no masses AUSCULTATION: Yes normoactive bowel sounds PALPATION: Yes Soft to palpation and Yes No hepatosplenomegaly present RECTAL EXAM: Yes deferred Extremity: COMMON NORMALS: no clubbing, cyanosis or edema and no pedal edema Neuro: COMMON NORMALS: patient oriented x3 Data : 08/24/21 00:11 08/24/21 00:11 A&P Assessment and plan (1) Acute blood loss anemia: Status: Acute (2) Lower GI bleeding: Status: Acute (3) Hyperkalemia: Status: Acute (4) Hypertension: Status: Acute (5) Diabetes: Status: Acute Plan Assessment #Lower GI bleed #Acute blood loss anemia #Hypertension #Diabetes #Hyperkalemia Plan: Monitor CBC Protonix Current plan is to transfuse him 2 units PRBC N.p.o. SSI , FSG Continue home antihypertensive medications CODE STATUS: Full code DVT PPX :SCD Attestations Medical Necessity Statement*: Patient needs to be in hospital for management of lower GI bleed, acute blood loss anemia.Anticipated length of stay greater than 2 midnights. Coding Level of Care Code Acute Carpenter General for Chg Fwd Exam Comprehensive Diagnoses Acute blood loss anemia D62 Lower GI bleeding K92.2 Hyperkalemia E87.5 Hypertension I10 Diabetes E11.9
[2021-08-24] MEDS: sodium chloride 0.9% 100 mL Bag 50 ML IV (03:20)
[2021-08-24] MEDS: metoprolol tartrate 50 mg Tablet 100 MG PO ×2 (08:13→21:41)
[2021-08-24] MEDS: FUROsemide 40 mg Tablet PO (08:13)
[2021-08-24] MEDS: duloxetine 60 mg Capsule PO ×2 (08:13→21:40)
[2021-08-24] MEDS: pantoprazole 40 mg SDV IVP ×2 (08:13→21:41)
[2021-08-24] MEDS: cloNIDine 0.1 mg Tablet PO ×2 (08:13→21:51)
[2021-08-24] MEDS: isosorbide mononitrate ER 30 mg Tablet PO (08:13)
[2021-08-24 11:22] LABS: Glucose Point of Care 157 mg/dL (70-110)
[2021-08-24 13:07] LABS: Hemoglobin 9.9 g/dL (11.7-16.6)
[2021-08-24 16:47] LABS: Glucose Point of Care 160 mg/dL (70-110)
[2021-08-24 20:46] LABS: Glucose Point of Care 165 mg/dL (70-110)
--- NOTE | 2021-08-24 20:58 | P.PN_ITS ---
Subjective Subjective: Interval history: No additional bloody bowel movements. Denies abdominal pain. Could eat. No chest pain or pressure. No shortness of breath. Last stent reports in November 2020. Vitals/I&O/Wt Last Vital Signs Temp 98.9 F 08/24/21 20:00 Pulse 77 08/24/21 20:00 Resp 17 08/24/21 20:00 BP 118/67 08/24/21 20:00 Pulse Ox 96 08/24/21 20:00 08/24/21 08/24/21 08/24/21 06:59 14:59 22:59 Intake Total 1350 / 1350 350 / 350 Balance 1350 / 1350 350 / 350 Weight last 48 hrs Weight 104.326 kg Physical Exam Narrative: EXAM NARRATIVE: at bedside. Const: COMMON NORMALS: no acute distress and patient oriented x3 HENMT: COMMON NORMALS: oropharynx normal Neck/C-Spine: COMMON NORMALS: no JVD Resp: COMMON NORMALS: normal respiratory effort and clear to auscultation bilaterally AUSCULTATION: clear to auscultation bilaterally Cardio: COMMON NORMALS: no JVD, regular rhythm, S1 normal heart sound present, S2 normal heart sound present and No murmurs present (Cardio) RHYTHM: regular rhythm HEART SOUNDS: S1 normal heart sound present and S2 normal heart sound present GI: COMMON NORMALS: Normal to inspection, nondistended, normoactive bowel madyson nds present, Soft to palpation and non-tender PALPATION: Yes Soft to palp ation Extremity: COMMON NORMALS: no joint enlargement and no pedal edema Neuro: COMMON NORMALS: patient oriented x3 and moves all extremities Skin: COMMON NORMALS: no rashes or lesions noted GENERAL SKIN EXAM: no rashes or lesions noted Data : 08/24/21 12:56 08/24/21 00:11 A&P Assessment and plan (1) Acute blood loss anemia: No recurrence of bloody stools today. Hemoglobin responded well to PRBC transfusion. Discussed with him and his regarding additional options regarding assessment and treatment. Given he is on Brilinta, for now he is agreeable to continue, reassess hemoglobin in the morning, and if no further bleeding occurs and hemoglobin remained steady, discharged with outpatient follow-up for colonoscopy. In case of recurrence of rebleeding, colonoscopy would have to be sought prior to discharge. Status: Acute (2) Lower GI bleeding: Status: Acute (3) Hyperkalemia: Status: Acute (4) Hypertension: Status: Acute (5) Diabetes: Status: Acute (6) Hematuria: Not symptomatic for UTI, but follow-up urine culture. Will need follow-up on outpatient side for resolution of microscopic hematuria. Status: Acute Attestations Medical Necessity Statement*: Continue admission for assessment management of lower GI bleed with acute blood loss anemia while on Brilinta with history of CAD and stenting. Coding Level of Care Code Acute Tool Crib Supervisor for [facility] Fwd Diagnoses Acute blood loss anemia D62 Lower GI bleeding K92.2 Hyperkalemia E87.5 Hypertension I10 Diabetes E11.9 Hematuria R31.9
[2021-08-24] MEDS: atorvastatin 40 mg Tablet 20 MG PO (21:40)
[2021-08-24] MEDS: ticagrelor 90 mg Tablet PO (21:40)
[2021-08-24] MEDS: trazodone 50 mg Tablet PO (21:41)
[2021-08-24] MEDS: montelukast sodium 10 mg Tablet PO (21:41)
[2021-08-25] VITALS (10 sets, daily range): BP systolic 101–138; BP diastolic 57–66; PULSE 61–85; RESP 16–18; TEMP 36.6–37; O2SAT 93–98
[2021-08-25 03:53] LABS: Basophils # 0.1 10^3/uL (0.0-0.1); Basophils % 1.1 %; Eosinophils # 0.3 10^3/uL (0.0-0.8); Eosinophils % 3.9 %; Hematocrit 28.2 % (42.0-52.0); Hemoglobin 8.8 g/dL (11.7-16.6); Lymphocytes # 1.4 10^3/uL (0.8-4.8); Lymphocytes % 17.2 %; Mean Corpuscular HGB Conc 31.2 g/dL (30.0-36.0); Mean Corpuscular Hemoglobin 25.4 pg (28.0-34.0); Mean Corpuscular Volume 81.3 fl (80-94); Mean Platelet Volume 9.1 fL (7.4-10.4); Monocytes # 1.2 10^3/uL (0.2-0.9); Monocytes % 14.5 %; Neutrophils # 5.17 10^3/uL (1.8-7.7); Neutrophils % 63.1 %; Nucleated Red Blood Cells % 0 %; Platelet Count 345 10^3/cmm (130-400); Red Blood Count 3.47 10^6/uL (4.1-5.3); Red Cell Distribution Width 16.8 % (12.1-15.1); White Blood Count 8.2 10^3/uL (4.0-10.0)
[2021-08-25 04:16] LABS: Alanine Aminotransferase 12 U/L (0-41); Albumin Level 3.8 g/dL (3.5-5.2); Alkaline Phosphatase 82 IU/L (40-130); Anion Gap 14.1 (5-19); Aspartate Amino Transferase 18 U/L (0-40); Blood Urea Nitrogen 26 mg/dL (8-23); Calcium 8.4 mg/dL (8.5-10.5); Carbon Dioxide 25 mmol/L (22-29); Chloride 103 mmol/L (98-107); Glucose 136 mg/dL (65-115); Osmolality Calculated 293 mOsm/kg (285-295); Potassium 4.1 mmol/L (3.5-5.1); Sodium 138 mmol/L (136-145); Total Bilirubin 0.6 mg/dL (0.15-1.2); Total Protein 5.8 g/dL (6.6-8.7)
[2021-08-25 04:36] LABS: INR 1.09 (0.8-1.2); Partial Thromboplastin Time 26.4 SECONDS (23.9-36.7)
[2021-08-25 06:55] LABS: Glucose Point of Care 145 mg/dL (70-110)
[2021-08-25] MEDS: isosorbide mononitrate ER 30 mg Tablet PO (09:20)
[2021-08-25] MEDS: duloxetine 60 mg Capsule PO ×2 (09:20→22:02)
[2021-08-25] MEDS: FUROsemide 40 mg Tablet PO (09:20)
[2021-08-25] MEDS: ticagrelor 90 mg Tablet PO (09:20)
[2021-08-25] MEDS: metoprolol tartrate 50 mg Tablet 100 MG PO (09:22)
[2021-08-25] MEDS: cloNIDine 0.1 mg Tablet PO (09:22)
[2021-08-25] MEDS: insulin lispro 100 unit/1 mL SUBCUT ×2 (09:22→14:08)
[2021-08-25] MEDS: pantoprazole 40 mg SDV IVP ×2 (09:23→22:01)
--- NOTE | 2021-08-25 10:50 | PC.CHAP ---
Pastoral Care Encounter/Spiritual Assessment Type of Contact [] Declined laundry route driver visit [] Patient/Family/Request visit [] Outpatient visit [] Follow-up visit [] Physician referral [] Code/Alert [x] Routine visit [] Staff referral [] Actively dying [] Patient sleeping [] Family support [] [] Out of room [] Palliative care [] [] Receiving care in room [] Pre-surgical visit [] Trauma [] Long length of stay [] ICU visit [] Other: Relational/Emotional Strength [x] Patient feels connected with others/family/visitors/staff [] Distress [] Loneliness/isolation [] Abandonment Spirituality of Patient [x] Person of Sadaf [x] Attends Latter Day of their Sadaf [x] Believes in Prayer [x] Reads Bible or Presybeterian materials [] There are Spiritual issues to be addressed Track Laying Equipment Operator Interventions [x Prayer [x] Active listening [x] Non-anxious presence [] Spiritual/emotional support [] Crisis/trauma care [x] Spiritual counseling [] Bereavement support [] Provided bereavement packet [] Provided Bible/devotional materials [] Provided toy/stuffed animal, coloring book to patient or family member [] Provided Communion [] Anointing/[place] [] Salvation [x] Completed spiritual assessment [] Other: Impact on Illness or Injury [] Angry [] Fearful [] Anxious [] Often cries [] Exhaustion [] Unable to work [] Unable to attend judaism [] Unable to walk/stand [] Unable to read [] Unable to drive [] Unable to eat/drink [] Unable to sleep [] Unable to be with family [] Patient intubated [] Other: Summary patient feeling much better Time spent with patient 15 min
[2021-08-25] MEDS: acetaminophen 325 mg Tablet 650 MG PO (12:55)
[2021-08-25 13:51] LABS: Glucose Point of Care 260 mg/dL (70-110)
[2021-08-25 17:16] LABS: Glucose Point of Care 86 mg/dL (70-110)
--- NOTE | 2021-08-25 17:56 | PM.PN ---
Subjective Subjective: Interval history: Hemoglobin at 8.8. Had 1 episode of bloody bowel movement which appears to be melanotic and direct appearance. Hemodynamically stable. Recalls having had an endoscopy at [facility] a few months ago, however unable to state clearly when. States that he was diagnosed with gastritis and some dilated veins, does not recall needing banding or any kind of procedures. Was recommended to continue on PPIs. Unclear if he has had a colonoscopy in the past. Risk records have been requested from [facility]. 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 He is status post receiving 2 units packed red blood cell, hemoglobin today at 8.8, down from 9.9. Given ongoing bloody bowel movement, likely melena, consult with GI today for upper and lower GI endoscopy. Reports having had a recent upper endoscopy, records requested from [facility]- per this was in May 2021. She read out to the report to me - suggestive of GERD. No bleeding. Continue to monitor hemoglobin Continue Protonix 40 mg IV every 12 hours Per review of notes it appears patient had NSTEMI with transfer to [facility] in 11/2020. Per , he has been on DAPT since this time but she is uncertain how long he was recommended to continue the same. Hold Brilinta for now since >6months since stent placement. Discussed with that weighing risk/benefit, risk of bleeding potentially higher than stent thrombosis, therefore will hold DAPT until bleeding resolves and active bleeding excluded. Dr. Buddy Santillan [phone] is his construction supervisor/carpenter- last seen in December 2020. Has not seen construction supervisor/carpenter since then. Does not wish to establish locally for now. Status: Acute (2) Lower GI bleeding: Status: Acute (3) Hyperkalemia: Status: Acute (4) Hypertension: Status: Acute (5) Diabetes: Status: Acute (6) Hematuria: Status: Acute Attestations Medical Necessity Statement*: ongoing GI bleed. Hold brilinta. Minotor HB, assess for endoscopy Coding Level of Care Code Acute Steam Tunnel Feeder for [facility] Fwd Diagnoses Acute blood loss anemia D62 Lower GI bleeding K92.2 Hyperkalemia E87.5 Hypertension I10 Diabetes E11.9 Hematuria R31.9
--- NOTE | 2021-08-25 17:59 | PM.CONSULT ---
Providers/Reason For Consult Consulting Physician/Specialty*: Endoscopy Reason for Consult*: Hematochezia and melena Requesting Physician: Franca Attending Physician: Stephanie Schulte MD Primary Care Provider: Lidia Infante MD History of Present Illness History of Present Illness Avni Graves is a 81 year old male who presented to the emergency department on Wednesday with complaints of bright red blood per rectum. There was question of whether or not was melanotic versus bright red on admission, so he was put in the hospital and his antiplatelet therapy was held. The bleeding abated to a great degree, and the plan was to release him on no antiplatelet therapy, with outpatient endoscopic evaluation. Subsequently he developed what appeared to be melena specifically. And his hemoglobin dropped requiring 2 units of blood. He has history of coronary disease and has 2 stents according to him. He is not particularly clear on his endoscopic history, but is assured that he has had more than 1 colonoscopy in at least 3 EGDs. He is uncertain of when his last exam was. They were done in [facility] and are not in our records. He is not in any distress as I speak to him. Review of Systems General: Reports: 10 or more systems reviewed and unremarkable except in HPI and below Medications/Allergies Home Medications Medication Instructions Recorded Confirmed Last Taken Type amitriptyline 10 mg tablet 10 mg PO BEDTIME@219912/16/20 08/24/21 12/15/20 History aspirin 81 mg chewable tablet 81 mg PO DAILY@219912/16/20 08/24/21 12/15/20 History beclomethasone dipropionate 80 1 inh INHALATION BID 12/16/20 08/24/21 12/15/20 History mcg/actuation HFA breath activated aerosol (Qvar RediHaler) cholecalciferol (vitamin D3) 50 100 mcg PO DAILY@1200 12/16/20 08/24/21 12/15/20 History mcg (2,000 unit) tablet (Vitamin D3) clonidine HCl 0.1 mg tablet 0.1 mg PO TID@0900,1400,0 12/16/20 08/24/21 12/16/20 History duloxetine 60 mg capsule,delayed 60 mg PO BID@0900,2200 12/16/20 08/24/21 12/16/20 History release furosemide 40 mg tablet 40 mg PO DAILY@0931/21 02/06/22 05/31/21 History glimepiride 1 mg tablet 1 mg PO DAILY@89912/16/20 08/24/21 12/16/20 History isosorbide mononitrate 30 mg 30 mg PO DAILY@89912/16/20 08/24/21 12/16/20 History tablet,extended release 24 hr losartan 50 mg tablet 50 mg PO DAILY@119912/16/20 08/24/21 12/15/20 History metformin 500 mg tablet,extended 500 mg PO BID@0900,219912/16/20 08/24/21 12/16/20 History release 24 hr metoprolol tartrate 100 mg tablet 100 mg PO BID@0900,219912/16/20 08/24/21 12/16/20 History montelukast 10 mg tablet 10 mg PO DAILY@219912/16/20 08/24/21 12/15/20 History nitroglycerin 0.4 mg sublingual 0.4 mg BUCCAL Q5MIN PRN 12/16/20 08/24/21 12/16/20 History tablet pantoprazole 40 mg tablet,delayed 40 mg PO BID@0900,219912/16/20 08/24/21 12/16/20 History release potassium chloride 20 mEq 20 meq PO BID 12/16/20 08/24/21 12/15/20 History tablet,extended release(part/cryst) (Klor-Con M) simvastatin 10 mg tablet 10 mg PO DAILY@219912/16/20 08/24/21 12/15/20 History sitagliptin 100 mg tablet (Camachouvia) 100 mg PO DAILY@89912/16/20 08/24/21 12/16/20 History spironolactone 25 mg tablet 25 mg PO DAILY@89912/16/20 08/24/21 12/16/20 History terazosin 5 mg capsule 5 mg PO BEDTIME@219912/16/20 08/24/21 12/15/20 History trazodone 50 mg tablet 50 mg PO BEDTIME@219912/16/20 08/24/21 12/15/20 History zinc 50 mg tablet 50 mg PO DAILY@119912/16/20 08/24/21 12/15/20 History atorvastatin 40 mg tablet 40 mg PO DAILY 08/24/21 08/24/21 Unknown History salmeterol 50 mcg/dose blister 1 inh INHALATION BID 08/24/21 08/24/21 Unknown History powder for inhalation (Serevent Diskus) ticagrelor 90 mg tablet (Brilinta) 90 mg PO BID 08/24/21 08/24/21 Unknown History Allergies Allergy/AdvReac Type Severity Reaction Status Date / Time No Known Allergies Allergy Verified 12/16/20 12:05 Current Medications Generic Name Dose Route Start Last Admin Trade Name Freq PRN Reason Stop Dose Admin Acetaminophen 650 mg 08/24/21 02:55 08/25/21 12:55 Acetaminophen 325 Mg Tablet PO 650 mg Q6H PRN Administration Mild/Mod Pain Or Temp >/= 101 Atorvastatin Calcium 20 mg 08/24/21 22:00 08/24/21 21:40 Atorvastatin 40 Mg Tablet PO 20 mg DAILY@2200 MARY ALICE Administration Clonidine HCl 0.1 mg 08/24/21 09:00 08/25/21 09:22 Clonidine 0.1 Mg Tablet PO 0.1 mg TID@0900,1400,2200 MARY ALICE Administration Duloxetine HCl 60 mg 08/24/21 09:00 08/25/21 09:20 Duloxetine 60 Mg Capsule PO 60 mg BID@0900,2200 MARY ALICE Administration Furosemide 40 mg 08/24/21 09:00 08/25/21 09:20 Furosemide 40 Mg Tablet PO 40 mg DAILY@0900 MARY ALICE Administration Insulin Human Lispro 0 unit 08/24/21 08:00 08/25/21 14:08 Insulin Lispro 100 Unit/1 Ml SUBCUT 2 unit TIDWM MARY ALICE Administration Protocol Isosorbide Mononitrate 30 mg 08/24/21 09:00 08/25/21 09:20 Isosorbide Mononitrate Er 30 Mg Tablet PO 30 mg DAILY@0900 MARY ALICE Administration Metoprolol Tartrate 100 mg 08/24/21 09:00 08/25/21 09:22 Metoprolol Tartrate 50 Mg Tablet PO 100 mg BID@0900,2200 MARY ALICE Administration Montelukast Sodium 10 mg 08/24/21 22:00 08/24/21 21:41 Montelukast Sodium 10 Mg Tablet PO 10 mg DAILY@220 MARY ALICE Administration Non-Formulary Medication 10 mg 08/24/21 22:00 08/25/21 00:25 Amitriptyline PO Not Given BEDTIME@2200 MARY ALICE Pantoprazole Sodium 40 mg 08/24/21 09:00 08/25/21 09:23 Pantoprazole 40 Mg Sdv IVP 40 mg Q12H MARY ALICE Administration Ticagrelor 90 mg 08/24/21 21:00 08/25/21 09:20 Ticagrelor 90 Mg Tablet PO 90 mg BID MARY ALICE Administration Trazodone HCl 50 mg 08/24/21 22:00 08/24/21 21:41 Trazodone 50 Mg Tablet PO 50 mg BEDTIME@2200 MARY ALICE Administration Vitals/I&O/Wt Last Vital Signs Temp 97.8 F 08/25/21 16:00 Pulse 71 08/25/21 16:00 Resp 18 08/25/21 16:00 BP 109/65 08/25/21 16:00 Pulse Ox 96 08/25/21 16:00 08/25/21 08/25/21 08/25/21 06:59 14:59 22:59 Intake Total 600 / 600 Output Total 225 / 225 150 / 150 Balance -225 / 245 450 / 450 Weight last 48 hrs Weight 230 lb Physical Exam Narrative: EXAM NARRATIVE: On exam he is in no distress this evening. Const: COMMON NORMALS: no acute distress, average body habitus, patient oriented x3, no limitations, healthy appearing, alert and well nourished HENMT: COMMON NORMALS: normocephalic, atraumatic, hearing grossly normal bilaterally, external ears normal, EAC's normal, TM's normal bilaterally, Normal external nose present, Normal nasal mucous membranes and turbinates present, moist oral mucous membranes, oropharynx normal, dentition normal and gingiva normal HEAD & SCALP: normocephalic and atraumatic NOSE: Normal external nose present and Normal nasal mucous membranes and turbinates present EXTERNAL EAR: Yes external ears normal EXTERNAL AUDITORY CANAL: EAC's normal TYMPANIC MEMBRANE: TM's normal bilaterally Eye: COMMON NORMALS: Equal, round and reactive pupils present, EOMs intact bilaterally, conjunctivae normal, no scleral icterus, no papilledema, normal visual kong by confrontation and fundi normal bilaterally CONJUNCTIVA: Yes conjunctivae normal PUPIL: Yes Equal, round and reactive pupils present DIRECT OPHTHALMOSCOPY: Yes no papilledema and Yes fundi normal bilaterally Chest: COMMONS NORMALS: normal inspection of the chest, normal palpation of entire chest wall, normal inspection of the breasts and normal palpation of the breasts Resp: COMMON NORMALS: normal respiratory effort, No retractions, No use of accessory muscles, clear to auscultation bilaterally and percussion normal AUSCULTATION: clear to auscultation bilaterally PERCUSSION: percussion normal Cardio: COMMON NORMALS: regular rate and regular rhythm RATE: regular rate RHYTHM: regular rhythm GI: COMMON NORMALS: Normal to inspection, nondistended, normoactive bowel sounds present, Soft to palpation, non-tender, No hepatosplenomegaly present, no masses and no bruits PALPATION: Yes Soft to palpation and Yes No hepatosplenomegaly present Neuro: COMMON NORMALS: patient oriented x3 SENSORIUM/ORIENTATION: Yes alert Data : 08/25/21 03:00 08/25/21 03:00 Micro: Microbiology 08/24/21 01:42 Urine Culture - Preliminary Urine,Clean Catch A&P Assessment and plan (1) Melena: Since the source of the bleeding is not particularly clear, we will proceed with a double endoscopy in the morning. 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
[2021-08-25] MEDS: magnesium citrate Btl 296 mL 592 ML PO (19:01)
[2021-08-25] MEDS: bisacodyl 5 mg Tablet 10 MG PO ×2 (19:02→22:01)
[2021-08-25 21:41] LABS: Glucose Point of Care 143 mg/dL (70-110)
[2021-08-25] MEDS: atorvastatin 40 mg Tablet 20 MG PO (22:02)
[2021-08-25] MEDS: trazodone 50 mg Tablet PO (22:02)
[2021-08-25] MEDS: montelukast sodium 10 mg Tablet PO (22:09)
--- NOTE | 2021-08-25 23:53 | PC.NURSE ---
2200 P sitting on side of bed. Reports he would like to wash up. Bath basin with warm water, wash cloths, saop, tooth paste/brush, and comb given. non- scid Socks applied to feet.
[2021-08-26] VITALS (14 sets, daily range): BP systolic 111–159; BP diastolic 55–85; PULSE 60–94; RESP 16–18; TEMP 36.5–36.9; O2SAT 94–100; BMI 34.9
--- NOTE | 2021-08-26 04:21 | PC.NURSE ---
0300 Pt on toilet. Requests adult brief d/t leaking of stool from rectum while sleeping. Small amt bright red blood noted to underwear and toilet. Brief given. Pt in no acute distress. will monitor bleeding.
--- NOTE | 2021-08-26 05:07 | PC.NURSE ---
0500 Assisted pt back to bed after mod amt bright red blood bm noted in toilet. Instructed pt to call before getting up to use toilet. Call light in reach. Voices understanding. HR 68
[2021-08-26 05:09] LABS: Basophils # 0.1 10^3/uL (0.0-0.1); Basophils % 0.6 %; Eosinophils # 0.3 10^3/uL (0.0-0.8); Hematocrit 29.1 % (42.0-52.0); Hemoglobin 8.9 g/dL (11.7-16.6); Lymphocytes # 1.3 10^3/uL (0.8-4.8); Lymphocytes % 13.3 %; Mean Corpuscular HGB Conc 30.6 g/dL (30.0-36.0); Mean Corpuscular Hemoglobin 24.8 pg (28.0-34.0); Mean Corpuscular Volume 81.1 fl (80-94); Mean Platelet Volume 9.2 fL (7.4-10.4); Monocytes # 1.2 10^3/uL (0.2-0.9); Monocytes % 12.8 %; Neutrophils # 6.61 10^3/uL (1.8-7.7); Neutrophils % 70.1 %; Nucleated Red Blood Cells % 0 %; Platelet Count 377 10^3/cmm (130-400); Red Blood Count 3.59 10^6/uL (4.1-5.3); Red Cell Distribution Width 16.9 % (12.1-15.1); White Blood Count 9.4 10^3/uL (4.0-10.0)
[2021-08-26 05:38] LABS: Alanine Aminotransferase 13 U/L (0-41); Albumin Level 4.1 g/dL (3.5-5.2); Alkaline Phosphatase 91 IU/L (40-130); Anion Gap 14.9 (5-19); Aspartate Amino Transferase 18 U/L (0-40); Blood Urea Nitrogen 25 mg/dL (8-23); Calcium 8.3 mg/dL (8.5-10.5); Carbon Dioxide 25 mmol/L (22-29); Chloride 102 mmol/L (98-107); Glucose 145 mg/dL (65-115); Osmolality Calculated 293 mOsm/kg (285-295); Potassium 3.9 mmol/L (3.5-5.1); Sodium 138 mmol/L (136-145); Total Bilirubin 0.3 mg/dL (0.15-1.2); Total Protein 6.1 g/dL (6.6-8.7)
--- NOTE | 2021-08-26 05:41 | PC.NURSE ---
0549 Lab results show hgb/hct holding steady. VS stable. Pt resting in bed. No acute distress.
[2021-08-26 06:45] LABS: Glucose Point of Care 158 mg/dL (70-110)
[2021-08-26 08:08] LABS: Adenovirus Not Detected (NOT DETECT); Chlamydia Pneumoniae Not Detected (NOT DETECT); Coronavirus 229E,HKU1,NL63,OC4 Not Detected (NOT DETECT); Human Metapneumovirus Not Detected (NOT DETECT); Human Rhinovirus/Enterovirus Not Detected (NOT DETECT); Influenza A Not Detected (NOT DETECT); Influenza A H1 Not Detected (NOT DETECT); Influenza A H1-2009 Not Detected (NOT DETECT); Influenza A H3 Not Detected (NOT DETECT); Influenza B Not Detected (NOT DETECT); Mycoplasma Pneumoniae Not Detected (NOT DETECT); Parainfluenza Virus Type 1 Not Detected (NOT DETECT); Parainfluenza Virus Type 2 Not Detected (NOT DETECT); Parainfluenza Virus Type 3 Not Detected (NOT DETECT); Parainfluenza Virus Type 4 Not Detected (NOT DETECT); Respiratory Syncytial Virus A Not Detected (NOT DETECT); Respiratory Syncytial Virus B Not Detected (NOT DETECT); SARS-COV-2 Not Detected (NOT DETECT)
[2021-08-26] MEDS: metoprolol tartrate 50 mg Tablet 100 MG PO ×2 (08:25→21:23)
--- NOTE | 2021-08-26 08:56 | ANES.PREANE2 ---
Pre-Anesthetic Assessment Height/Weight: Height 1.73 m Weight 104.326 kg Temp Pulse Resp BP Pulse Ox 98.2 F 94 16 159/79 98 08/26/21 08:00 08/26/21 08:00 08/26/21 08:00 08/26/21 08:00 08/26/21 08:00 Preop Diagnosis: Melena, hematochezia Operation Date: 08/26/21 09:00 Proposed Procedures p EGD(Not Applicable) - Pranay Lemos MD s Colonoscopy(Not Applicable) - Pranay Lemos MD Familial anesthetic complications: None Was Beta Justo taken within 24 hours: Yes Was Clonidine taken within 24 hours: N/A Last intake: > 8hrs Social No alcohol and No tobacco Exam alert, oriented x 3, clear to auscultation bilaterally and regular rate & rhythm Airway Mallampati: Class II Dentition: full Pulmonary Asthma (inhaler up to 1x a day) CV/HEM Anemia, Coronary Artery Disease (2 stents 12/06), Hypertension and Myocardial Infarction (NSTEMI 12/06) GI Gastroesophageal Reflux Disease GI bleed Metabolic Diabetes Mellitus and Morbid Obesity Neuropsych parkinson's Anesthetic Plan ASA status: 3 Anesthesia: MAC Medications/Allergies Home Medications Medication Instructions Recorded Confirmed Last Taken Type amitriptyline 10 mg tablet 10 mg PO BEDTIME@219912/16/20 08/24/21 12/15/20 History aspirin 81 mg chewable tablet 81 mg PO DAILY@219912/16/20 08/24/21 12/15/20 History beclomethasone dipropionate 80 1 inh INHALATION BID 12/16/20 08/24/21 12/15/20 History mcg/actuation HFA breath activated aerosol (Qvar RediHaler) cholecalciferol (vitamin D3) 50 100 mcg PO DAILY@1200 12/16/20 08/24/21 12/15/20 History mcg (2,000 unit) tablet (Vitamin D3) clonidine HCl 0.1 mg tablet 0.1 mg PO TID@0900,1400,219912/16/20 08/24/21 12/16/20 History duloxetine 60 mg capsule,delayed 60 mg PO BID@0900,2200 12/16/20 08/24/21 12/16/20 History release furosemide 40 mg tablet 40 mg PO DAILY@0900 05/08/24/21 12/16/20 History glimepiride 1 mg tablet 1 mg PO DAILY@0912/16/20 08/24/21 12/16/20 History isosorbide mononitrate 30 mg 30 mg PO DAILY@89912/16/20 08/24/21 12/16/20 History tablet,extended release 24 hr losartan 50 mg tablet 50 mg PO DAILY@119912/16/20 08/24/21 12/15/20 History metformin 500 mg tablet,extended 500 mg PO BID@0900,219912/16/20 08/24/21 12/16/20 History release 24 hr metoprolol tartrate 100 mg tablet 100 mg PO BID@0900,219912/16/20 08/24/21 12/16/20 History montelukast 10 mg tablet 10 mg PO DAILY@219912/16/20 08/24/21 12/15/20 History nitroglycerin 0.4 mg sublingual 0.4 mg BUCCAL Q5MIN PRN 12/16/20 08/24/21 12/16/20 History tablet pantoprazole 40 mg tablet,delayed 40 mg PO BID@0900,219912/16/20 08/24/21 12/16/20 History release potassium chloride 20 mEq 20 meq PO BID 12/16/20 08/24/21 12/15/20 History tablet,extended release(part/cryst) (Klor-Con M) simvastatin 10 mg tablet 10 mg PO DAILY@219912/16/20 08/24/21 12/15/20 History sitagliptin 100 mg tablet (Januvia) 100 mg PO DAILY@89912/16/20 08/24/21 12/16/20 History spironolactone 25 mg tablet 25 mg PO DAILY@89912/16/20 08/24/21 12/16/20 History terazosin 5 mg capsule 5 mg PO BEDTIME@219912/16/20 08/24/21 12/15/20 History trazodone 50 mg tablet 50 mg PO BEDTIME@219912/16/20 08/24/21 12/15/20 History zinc 50 mg tablet 50 mg PO DAILY@119912/16/20 08/24/21 12/15/20 History atorvastatin 40 mg tablet 40 mg PO DAILY 08/24/21 08/24/21 Unknown History salmeterol 50 mcg/dose blister 1 inh INHALATION BID 08/24/21 08/24/21 Unknown History powder for inhalation (Serevent Diskus) ticagrelor 90 mg tablet (Brilinta) 90 mg PO BID 08/24/21 08/24/21 Unknown History Allergies Allergy/AdvReac Type Severity Reaction Status Date / Time No Known Allergies Allergy Verified 12/16/20 12:05 Current Medications Generic Name Dose Route Start Last Admin Trade Name Freq PRN Reason Stop Dose Admin Acetaminophen 650 mg 08/24/21 02:55 08/25/21 12:55 Acetaminophen 325 Mg Tablet PO 650 mg Q6H PRN Administration Mild/Mod Pain Or Temp >/= 101 Atorvastatin Calcium 20 mg 08/24/21 22:00 08/25/21 22:02 Atorvastatin 40 Mg Tablet PO 20 mg DAILY@2200 [facility] Administration Bisacodyl 10 mg 08/24/21 02:55 08/25/21 19:02 Bisacodyl 5 Mg Tablet PO 10 mg DAILY PRN Administration Constipation (see protocol) Protocol Clonidine HCl 0.1 mg 08/24/21 09:00 08/25/21 22:08 Clonidine 0.1 Mg Tablet PO Not Given TID@0900,1400,2200 [facility] Duloxetine HCl 60 mg 08/24/21 09:00 08/25/21 22:02 Duloxetine 60 Mg Capsule PO 60 mg BID@0900,2200 MARY ALICE Administration Furosemide 40 mg 08/24/21 09:00 08/25/21 09:20 Furosemide 40 Mg Tablet PO 40 mg DAILY@0900 MARY ALICE Administration Insulin Human Lispro 0 unit 08/24/21 08:00 08/25/21 18:43 Insulin Lispro 100 Unit/1 Ml SUBCUT Not Given TIDWM [facility] Protocol Isosorbide Mononitrate 30 mg 08/24/21 09:00 08/25/21 09:20 Isosorbide Mononitrate Er 30 Mg Tablet PO 30 mg DAILY@0900 MARY ALICE Administration Metoprolol Tartrate 100 mg 08/24/21 09:00 08/26/21 08:25 Metoprolol Tartrate 50 Mg Tablet PO 100 mg BID@0900,2200 MARY ALICE Administration Montelukast Sodium 10 mg 08/24/21 22:00 08/25/21 22:09 Montelukast Sodium 10 Mg Tablet PO 10 mg DAILY@0 [facility] Administration Non-Formulary Medication 10 mg 08/24/21 22:00 08/25/21 22:08 Amitriptyline PO Not Given BEDTIME@2199 [facility] Pantoprazole Sodium 40 mg 08/24/21 09:00 08/25/21 22:01 Pantoprazole 40 Mg Sdv IVP 40 mg Q12H MARY ALICE Administration Ticagrelor 90 mg 08/24/21 21:00 08/25/21 09:20 Ticagrelor 90 Mg Tablet PO 90 mg BID MARY ALICE Administration Trazodone HCl 50 mg 08/24/21 22:00 08/25/21 22:02 Trazodone 50 Mg Tablet PO 50 mg BEDTIME@2199 [facility] Administration Data Anesthesia : 08/26/21 04:34 08/26/21 04:34 Short CBC 08/24/21 08/25/21 08/26/21 Range/Units 12:56 03:00 04:34 WBC 8.2 9.4 (4.0-10.0) 10^3/uL Hgb 9.9 L 8.8 L 8.9 L (11.7-16.6) g/dL Hct 28.2 L 29.1 L (42.0-52.0) % MCV 81.3 81.1 (80-94) fl Plt Count 345 377 (130-400) 10^3/cmm Neut % (Auto) 63.1 70.1 % Neut # (Auto) 5.17 6.61 (1.8-7.7) 10^3/uL BMP 08/25/21 08/26/21 03:00 04:34 Sodium 138 138 Potassium 4.1 3.9 Chloride 103 102 Carbon Dioxide 25 25 BUN 26 H 25 H Creatinine 1.4 H 1.1 Glucose 136 H 145 H Calcium 8.4 L 8.3 L Liver Function 08/25/21 08/26/21 Range/Units 03:00 04:34 Total Bilirubin 0.6 0.3 (0.15-1.2) mg/dL AST 18 18 (0-40) U/L ALT 12 13 (0-41) U/L Alkaline Phosphatase 82 91 (40-130) IU/L Albumin 3.8 4.1 (3.5-5.2) g/dL COVID Results 08/26/21 06:20 Coronavirus 229E (PCR) Not detected SARS-CoV-2 (PCR) Not detected Coags 08/25/21 03:00 PT 14.40 INR 1.09 APTT 26.4 Microbiology 08/24/21 01:42 Urine Culture - Preliminary Urine,Clean Catch Cardiac Studies: No Data to Display
[2021-08-26] MEDS: sodium chloride 0.9% 1,000 ML 30 ML IV (09:00)
[2021-08-26] MEDS: EPINEPHrine 1 mg/mL INJ XX (09:55)
[2021-08-26 12:44] LABS: Glucose Point of Care 180 mg/dL (70-110)
[2021-08-26] MEDS: insulin lispro 100 unit/1 mL SUBCUT (14:06)
[2021-08-26] MEDS: cloNIDine 0.1 mg Tablet PO (14:07)
--- NOTE | 2021-08-26 15:26 | ANE.PACU2 ---
Inpatient post-anesthesia follow up: Airway intact: Yes Vital signs: Temperature 97.8 F Pulse Rate 69 Respiratory Rate 18 Blood Pressure 143/73 Pulse Oximetry 95 Oxygen Delivery Me thod [ Room Air Current Rate & Del mitesh] Oxygen Delivery Me thod Room Air Oxygen Flow Rate 4 Fraction of Inspir ed Oxygen Hydration adequate: Yes Nausea and vomiting: No Pain level: 2 Mental status: Baseline
[2021-08-26 17:53] LABS: Glucose Point of Care 140 mg/dL (70-110)
--- NOTE | 2021-08-26 19:06 | PM.PN ---
Subjective Subjective: Hemoglobin stable at 8.9. Hemodynamically stable. Underwent upper and lower GI endoscopy today. Findings of hyperplastic polyp in the fundus of stomach with a thought on top, polypectomy performed. Clean base. Angiectasia additionally noted in duodenal bulb status post injection with epinephrine and clipping. And is: Signs of aspirin induced colitis. Recommended to remain off Brilinta for at least 1 week and discontinue aspirin. Resume diet post procedure. 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 ASA discontinued - see colonoscopy findings. Per review of notes it appears patient had NSTEMI with transfer to [facility] in 11/2020. Per , he has been on DAPT since this time but she is uncertain how long he was recommended to continue the same. Hold Brilinta for now since >6months since stent placement and current GI bleeding. Discussed with that weighing risk/benefit risk of bleeding higher than stent thrombosis at this time, Dr. 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 Has not seen suspender maker since then. Does not wish to establish locally for now. 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
[2021-08-26 20:29] LABS: Glucose Point of Care 209 mg/dL (70-110)
[2021-08-26] MEDS: pantoprazole 40 mg SDV IVP (21:22)
[2021-08-26] MEDS: atorvastatin 40 mg Tablet 20 MG PO (21:22)
[2021-08-26] MEDS: montelukast sodium 10 mg Tablet PO (21:23)
[2021-08-26] MEDS: duloxetine 60 mg Capsule PO (21:23)
[2021-08-26] MEDS: trazodone 50 mg Tablet PO (21:26)
[2021-08-27] VITALS: BP 108/68; PULSE 77; RESP 16; O2SAT 95
--- NOTE | 2021-08-27 00:18 | PC.NURSE ---
0015 Resting in bed on right side. Resp E/U. No distress.
--- NOTE | 2021-08-27 03:56 | PC.NURSE ---
0400 Pt easily arouses, resting in bed on left side. No distress.
[2021-08-27 04:17] VITALS: BP 122/62; PULSE 73; RESP 16; TEMP 37; O2SAT 93
[2021-08-27 05:32] LABS: Basophils # 0.1 10^3/uL (0.0-0.1); Basophils % 0.8 %; Eosinophils # 0.4 10^3/uL (0.0-0.8); Eosinophils % 4.1 %; Hematocrit 28.8 % (42.0-52.0); Hemoglobin 8.8 g/dL (11.7-16.6); Lymphocytes # 1.5 10^3/uL (0.8-4.8); Lymphocytes % 16.4 %; Mean Corpuscular HGB Conc 30.6 g/dL (30.0-36.0); Mean Corpuscular Hemoglobin 24.9 pg (28.0-34.0); Mean Corpuscular Volume 81.6 fl (80-94); Mean Platelet Volume 9.4 fL (7.4-10.4); Monocytes # 1.4 10^3/uL (0.2-0.9); Monocytes % 15.1 %; Neutrophils # 5.77 10^3/uL (1.8-7.7); Neutrophils % 63.3 %; Nucleated Red Blood Cells % 0 %; Platelet Count 401 10^3/cmm (130-400); Red Blood Count 3.53 10^6/uL (4.1-5.3); Red Cell Distribution Width 17.3 % (12.1-15.1); White Blood Count 9.1 10^3/uL (4.0-10.0)
[2021-08-27 05:47] LABS: Alanine Aminotransferase 12 U/L (0-41); Albumin Level 3.7 g/dL (3.5-5.2); Alkaline Phosphatase 86 IU/L (40-130); Anion Gap 15.8 (5-19); Aspartate Amino Transferase 18 U/L (0-40); Blood Urea Nitrogen 24 mg/dL (8-23); Calcium 8.5 mg/dL (8.5-10.5); Carbon Dioxide 23 mmol/L (22-29); Chloride 103 mmol/L (98-107); Globulin 2.2 g/dL (1.3-4.6); Glucose 161 mg/dL (65-115); Osmolality Calculated 294 mOsm/kg (285-295); Potassium 3.8 mmol/L (3.5-5.1); Sodium 138 mmol/L (136-145); Total Bilirubin 0.2 mg/dL (0.15-1.2); Total Protein 5.9 g/dL (6.6-8.7)
[2021-08-27 06:00] VITALS: PULSE 75
[2021-08-27 07:30] LABS: Glucose Point of Care 174 mg/dL (70-110)
[2021-08-27 07:41] VITALS: BP 104/55; PULSE 64; RESP 16; TEMP 36.7; O2SAT 95
[2021-08-27 08:00] VITALS: BP 99/43; PULSE 77; RESP 18; TEMP 36.7; O2SAT 96
[2021-08-27] MEDS: duloxetine 60 mg Capsule PO (09:47)
[2021-08-27] MEDS: metoprolol tartrate 50 mg Tablet 100 MG PO (09:47)
[2021-08-27] MEDS: pantoprazole 40 mg SDV IVP (09:47)
[2021-08-27] MEDS: FUROsemide 40 mg Tablet PO (09:47)
--- NOTE | 2021-08-27 11:45 | PC.SOCIAL ---
IMM Update pg 2 of IMM updated and reviewed w/ patient. Copy provided and copy placed in chart.
--- NOTE | 2021-08-27 14:09 | PM.DCS ---
Discharge Providers Date of Admission: 08/24/21 02:26 Date of Discharge: August 27, 2021 Attending Provider at Admission: Brian Tejeda MD Attending Provider at Discharge: Stephanie Schulte MD Primary Care Provider: Lidia Infante MD Diagnoses at Discharge Discharge Diagnosis (1) Acute blood loss anemia: Status: Acute (2) Lower GI bleeding: Status: Acute (3) Hyperkalemia: Status: Acute (4) Hypertension: Status: Acute (5) Diabetes: Status: Acute (6) Hematuria: Status: Acute Reason for Visit Reason for Visit: GI BLEED Hospital Course Hospital Course Avni Graves is a 81 year old male with past medical history of, hypertension,? diabetes,? coronary artery disease, NSTEMI requiring intervention in 11/2020, on DAPT with ASA/BRilinta, Came in with chief complaint of bright red blood per rectum 4-5 episodes and also developed ran during admission. For his blood loss anemia, he received 2PRBC transfusion. Dr. Lemos was consulted for endoscopy. Findings of pedunculated 8 x8 mm polyp in the fundus of stomach with clotted blood which may have been source of ran,, polypectomy performed.? Clean base.? 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 LGIE with patchy inflammation which was friable. Few areas of petechaie and punctate colitis, Signs of aspirin induced colopathy.?Recommended to discontinue aspirin. Hold Brilinta for one week and then resume. Risk of CAD and thrombosis discussed, however given active bleeding and that patient is 8 months since most recent cardiac stents, risk of GI rebleed outweighs risk of stent thrombosis at this time. Patient and acknowledged understanding and feel comfortable with the plan. Instructed to return to ER in case of any chest pain, dyspnea palpitations, recurrent lower GI bleeding. Patient had one bowel movement this morning, no blayne melena. 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 Enlarged prostate greater than or equal to 5.0 cm; correlation with PSA levels is recommended. 2. No active bleeding identified at time of this exam. Laboratory Results WBC 9.1 10^3/uL (4.0-10.0) 08/27/21 04:46 RBC 3.53 10^6/uL (4.1-5.3) L 08/27/21 04:46 Hgb 8.8 g/dL (11.7-16.6) L 08/27/21 04:46 Hct 28.8 % (42.0-52.0) L 08/27/21 04:46 MCV 81.6 fl (80-94) 08/27/21 04:46 MCH 24.9 pg (28.0-34.0) L 08/27/21 04:46 MCHC 30.6 g/dL (30.0-36.0) 08/27/21 04:46 RDW 17.3 % (12.1-15.1) H 08/27/21 04:46 Plt Count 401 10^3/cmm (130-400) H 08/27/21 04:46 MPV 9.4 fL (7.4-10.4) 08/27/21 04:46 Neut % (Auto) 63.3 % 08/27/21 04:46 Lymph % (Auto) 16.4 % 08/27/21 04:46 [place] % (Auto) 15.1 % 08/27/21 04:46 Eos % (Auto) 4.1 % 08/27/21 04:46 Baso % (Auto) 0.8 % 08/27/21 04:46 Neut # (Auto) 5.77 10^3/uL (1.8-7.7) 08/27/21 04:46 Lymph # (Auto) 1.5 10^3/uL (0.8-4.8) 08/27/21 04:46 [place] # (Auto) 1.4 10^3/uL (0.2-0.9) H 08/27/21 04:46 Eos # (Auto) 0.4 10^3/uL (0.0-0.8) 08/27/21 04:46 Baso # (Auto) 0.1 10^3/uL (0.0-0.1) 08/27/21 04:46 Nucleated RBC % (auto) 0 % 08/27/21 04:46 Nucleated RBCs # 0.0 /100WBC 08/27/21 04:46 PT 14.40 SECONDS (12.1-14.9) 08/25/21 03:00 INR 1.09 (0.8-1.2) 08/25/21 03:00 APTT 26.4 SECONDS (23.9-36.7) 08/25/21 03:00 Sodium 138 mmol/L (136-145) 08/27/21 04:46 Potassium 3.8 mmol/L (3.5-5.1) 08/27/21 04:46 Chloride 103 mmol/L (98-107) 08/27/21 04:46 Carbon Dioxide 23 mmol/L (22-29) 08/27/21 04:46 Anion Gap 15.8 (5-19) 08/27/21 04:46 BUN 24 mg/dL (8-23) H 08/27/21 04:46 Creatinine 1.1 mg/dL (0.7-1.2) 08/27/21 04:46 GFR Calculation Not Reportable 08/27/21 04:46 Glucose 161 mg/dL (65-115) H 08/27/21 04:46 POC Glucose 174 mg/dL (70-110) H 08/27/21 06:28 Calculated Osmolality 294 mOsm/kg (285-295) 08/27/21 04:46 Lactate 1.5 mmol/L (0.5-2.2) 08/24/21 00:11 Calcium 8.5 mg/dL (8.5-10.5) 08/27/21 04:46 Total Bilirubin 0.2 mg/dL (0.15-1.2) 08/27/21 04:46 AST 18 U/L (0-40) 08/27/21 04:46 ALT 12 U/L (0-41) 08/27/21 04:46 Alkaline Phosphatase 86 IU/L (40-130) 08/27/21 04:46 Total Protein 5.9 g/dL (6.6-8.7) L 08/27/21 04:46 Albumin 3.7 g/dL (3.5-5.2) 08/27/21 04:46 Globulin 2.2 g/dL (1.3-4.6) 08/27/21 04:46 Lipase 15 U/L (13-60) 08/24/21 00:11 Urine Color Yellow (Yellow) 08/24/21 01:42 Urine Appearance Clear (CLEAR) 08/24/21 01:42 Urine pH 5 (5-7) 08/24/21 01:42 Ur Specific [place] 1.020 (1.005-1.030) 08/24/21 01:42 Urine Protein Neg (Negative) 08/24/21 01:42 Urine Glucose (UA) Norm (Normal) 08/24/21 01:42 Urine Ketones Negative (Negative) 08/24/21 01:42 Urine Blood 3+ (Negative) H 08/24/21 01:42 Urine Nitrate Negative (Negative) 08/24/21 01:42 Urine Bilirubin Neg (Negative) 08/24/21 01:42 Urine Urobilinogen Norm mg/dL (Negative) 08/24/21 01:42 Ur Leukocyte Esterase Negative (Negative) 08/24/21 01:42 Urine RBC 10-15 /hpf (0-2) H 08/24/21 01:42 Urine WBC 0-4 /hpf (0-5) H 08/24/21 01:42 Ur Squamous Epith Cells 5-10 /hpf (0-5) H 08/24/21 01:42 Amorphous Sediment Not Reportable 08/24/21 01:42 Urine Bacteria 1+ /hpf (NONE) H 08/24/21 01:42 Coronavirus 229E (PCR) Not detected (NOT DETECT) 08/26/21 06:20 SARS-CoV-2 (PCR) Not detected (NOT DETECT) 08/26/21 06:20 Blood Type O Positive 08/23/21 00:26 Rho(D) Type Positive 08/23/21 00:26 Antibody Screen Negative 08/23/21 00:26 Crossmatch See Detail 08/23/21 00:26 Vitals Last Vital Signs Temp 98.0 F 08/27/21 08:00 Pulse 77 08/27/21 08:00 Resp 18 08/27/21 08:00 BP 99/43 08/27/21 08:00 Pulse Ox 96 08/27/21 08:00 Discharge Plan Discharge Patient Disposition: Home Condition: Stable Prescriptions: New acetaminophen 325 mg Tablet 650 mg PO Q6H PRN (Reason: Mild/Mod Pain Or Temp >/= 101) Qty: 0 0RF ferrous gluconate 225 mg (27 mg iron) tablet 225 mg PO DAILY Qty: 30 0RF Continued losartan 50 mg tablet 50 mg PO DAILY@1200 0RF furosemide 40 mg tablet 40 mg PO DAILY@0900 0RF terazosin 5 mg capsule 5 mg PO BEDTIME@2200 0RF clonidine HCl 0.1 mg tablet 0.1 mg PO TID@0900,1400,2200 0RF trazodone 50 mg tablet 50 mg PO BEDTIME@2200 0RF metoprolol tartrate 100 mg tablet 100 mg PO BID@0900,2200 0RF isosorbide mononitrate 30 mg tablet extended release 24 hr 30 mg PO DAILY@0900 0RF simvastatin 10 mg tablet 10 mg PO DAILY@2200 0RF spironolactone 25 mg tablet 25 mg PO DAILY@0900 0RF glimepiride 1 mg tablet 1 mg PO DAILY@0900 0RF potassium chloride [Klor-Con M20] 20 mEq tablet,ER particles/crystals 20 meq PO BID 0RF amitriptyline 10 mg tablet 10 mg PO BEDTIME@2200 0RF pantoprazole 40 mg tablet,delayed release (DR/EC) 40 mg PO BID@0900,2200 0RF nitroglycerin 0.4 mg tablet, sublingual 0.4 mg buccal Q5MIN PRN (Reason: Chest Pain) 0RF montelukast 10 mg tablet 10 mg PO DAILY@2200 0RF metformin 500 mg tablet extended release 24 hr 500 mg PO BID@0900,2200 0RF duloxetine 60 mg capsule,delayed release(DR/EC) 60 mg PO BID@0900,2200 0RF Januvia 100 mg tablet 100 mg PO DAILY@0900 0RF Qvar RediHaler 80 mcg/actuation HFA aerosol breath activated 1 inh INHALATION BID 0RF zinc 50 mg Tablet 50 mg PO DAILY@1200 0RF cholecalciferol (vitamin D3) [Vitamin D3] 50 mcg (2,000 unit) Tablet 100 mcg PO DAILY@1200 0RF atorvastatin 40 mg Tablet 40 mg PO DAILY 0RF Serevent Diskus 50 mcg/dose Blister With Device 1 inh INHALATION BID 0RF Held Brilinta 90 mg Tablet 90 mg PO BID 0RF Hold Instructions: Resume on 09/02/21. Discontinued aspirin 81 mg Tablet,Chewable 81 mg PO DAILY@2200 0RF Discharge Orders: Discharge Order (Routine); Ordered 08/27/21 Ordered By: Stephanie Schulte Referrals: Lidia Infante MD [Primary Care Provider] - 09/04/21 2:45 pm (hospital discharge follow up for GI bleeding ) Discharge Diet: Advance as tolerated and Usual diet Discharge Activity: Resume usual activity Patient Instructions: Iron Supplements (By mouth), Acetaminophen (By mouth), GI Bleeding, GI Discharge Instructions, Opioid Safety Discharge Attestations Time Spent in Discharge Care*: greater than 30 min Quality Metrics Clinical Quality Measures [ No reported AMI, CVA or VTE this stay] Coding Level of Care Code Acute Chg FW DC note Diagnoses Acute blood loss anemia D62 Lower GI bleeding K92.2 Hyperkalemia E87.5 Hypertension I10 Diabetes E11.9 Hematuria R31.9
[2021-08-29 21:28] LABS: Glucose Point of Care 270 mg/dL (70-110)
== END 2021-08-27 13:50 | disposition home or self-care (01) | DRG 378 ==
LOC: ER 08-24 03:07 → MEDSURG 08-24 05:48
PROVIDERS: Internal Medicine; Nurse Practitioner Family; Admitting Provider Internal Medicine; Emergency Provider Emergency Medicine; PCP Family Medicine; Visit Provider Student in an Organized Health Care Education/Training Program
PROC: 0DJ08ZZ Inspection of Upper Intestinal Tract, Via Natural or Artificial Opening Endoscopic (ICD-10-PCS; CPT 43235; principal; 2021-08-26 09:00)
PROC: 0DJD8ZZ Inspection of Lower Intestinal Tract, Via Natural or Artificial Opening Endoscopic (ICD-10-PCS; CPT 45378; 2021-08-26 09:00)
DX: K31.811 Angiodysplasia of stomach and duodenum with bleeding (principal); D62 Acute posthemorrhagic anemia; K52.1 Toxic gastroenteritis and colitis; K31.7 Polyp of stomach and duodenum; I10 Essential (primary) hypertension; E11.9 Type 2 diabetes mellitus without complications; I25.10 Atherosclerotic heart disease of native coronary artery without angina pectoris; Z95.5 Presence of coronary angioplasty implant and graft; E87.5 Hyperkalemia; R31.29 Other microscopic hematuria; I25.2 Old myocardial infarction; T39.015A Adverse effect of aspirin, initial encounter
CPT/HCPCS: 36415; 36416; 36430; 43251; 43255; 45378; 74177; 80053; 81001; 82962; 83605; 83690; 85018; 85025; 85610; 85730; 86850; 86900; 86920; 87086; 87635; 88305; 93005; 96372; 96374; 96375; 96376; 99285; C9113; J0171; J1815; J2405; J2704; J7030; P9016; Q9967

== ENCOUNTER 2021-10-01 14:14 | Observation (INO) | payer MEDICARE, SELFPAY ==
[2021-10-01 14:22] VITALS: BP 131/59; PULSE 96; RESP 18; TEMP 37; O2SAT 98; BMI 33.2
--- NOTE | 2021-10-01 14:30 | ECG_ITS ---
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 Measurements Intervals [place] Rate: 98 P: 48 SD: 175 QRS: 7 QRSD: 99 T: 57 QT: 356 QTc: 455 Interpretive Statements SINUS RHYTHM WITH FREQUENT VENTRICULAR PREMATURE COMPLEXES Compared to ECG 08/24/2021 00:26:21 Ventricular premature complex(es) now present Sinus tachycardia no longer present First degree AV block no longer present Myocardial infarct finding no longer present Electronically Signed On 10-01-2021 18:41:16 CDT by Ousmane Rowan M.D. [id number]
--- NOTE | 2021-10-01 14:38 | W.ED.WEAKNES ---
Documented by User: SHA Brown 10/01/21 16:40 HPI - Weakness General: Chief complaint: Weakness Stated complaint: Black stool, prev GI surg Time Seen by Provider: 10/01/21 14:30 History of Present Illness: Patient said he has had dark stool since he left here the hospital month ago. He had scopes done by Dr. Lemos. He had a polyp cauterized and also had a duodenal AVM. That was taken care of. Patient saw Dr. Ontiveros about a week after blood count was back at 9 is what patient said the patient is not feeling better is getting dizzy now heart races when standing up and stools are staying dark. Associated symptoms: Reports melena; Denies chest pain, chills, fever(s), headache(s), nausea or vomiting Review of Systems Const: Denies: fever(s), chills or body aches Eyes: Denies: eye discomfort ENMT: Denies: throat pain Card: Denies: chest pain Resp: Denies: dyspnea GI: Reports: melena; Denies: abdominal pain, nausea or vomiting Skin/Breast: Denies: rash Neuro: Reports: dizziness; Denies: headache(s) Psych: Denies: depression or suicidal ideation REPLACED BY [facility] PFSH: Medical History (Updated 10/01/21 @ 21:46 by Kyrie Ennis MD) Diabetes Hypertension Physical Exam Const: COMMON NORMALS: no acute distress, patient oriented x3 and alert HENMT: COMMON NORMALS: normocephalic and external ears normal HEAD & SCALP: normocephalic EXTERNAL EAR: Yes external ears normal Eye: COMMON NORMALS: EOMs intact bilaterally CONJUNCTIVA: Yes conjunctival abnormal positive bilateral pallor Neck/C-Spine: COMMON NORMALS: no JVD Resp: COMMON NORMALS: normal respiratory effort and No use of accessory muscles Cardio: COMMON NORMALS: no JVD RATE: tachycardic (Mild) GI: INSPECTION: Yes normal to inspection Extremity: COMMON NORMALS: normal to inspection and full ROM Neuro: COMMON NORMALS: patient oriented x3 SENSORIUM/ORIENTATION: Yes alert Psych: COMMON NORMALS: mental status grossly normal Skin: COMMON NORMALS: no rashes or lesions noted GENERAL SKIN EXAM: no rashes or lesions noted OTHER: Patient has pallor throughout, cap refill slow Course Vital Signs: Vital signs: Vital Signs Temperature 98.5 F 10/02/21 11:14 Pulse Rate 94 10/02/21 11:14 Respiratory Rate 16 10/02/21 11:14 Blood Pressure 121/73 10/02/21 11:14 Pulse Oximetry 95 10/02/21 11:14 MDM - Weakness Medical Decision Making Discussed case with Dr. Perez and then spoke with hospitalist Dr. Ennis patient will be admitted to the outpatient unit for 2 units of packed red blood cells this evening and follow-up with Dr. Lemos tomorrow or soon as possible. Lab Data : 10/02/21 04:55 10/01/21 15:32 Laboratory Results WBC 8.9 10^3/uL (4.0-10.0) 10/01/21 15:32 RBC 2.73 10^6/uL (4.1-5.3) L 10/01/21 15:32 Hgb 7.2 g/dL (11.7-16.6) L 10/01/21 15:32 Hct 23.5 % (42.0-52.0) L 10/01/21 15:32 MCV 86.1 fl (80-94) 10/01/21 15:32 MCH 26.4 pg (28.0-34.0) L 10/01/21 15: MCHC 30.6 g/dL (30.0-36.0) 10/01/21 15:32 RDW 18.1 % (12.1-15.1) H 10/01/21 15:32 Plt Count 417 10^3/cmm (130-400) H 10/01/21 15:32 MPV 9.8 fL (7.4-10.4) 10/01/21 15:32 Neut % (Auto) 69.7 % 10/01/21 15:32 Lymph % (Auto) 15.6 % 10/01/21 15:32 [place] % (Auto) 10.5 % 10/01/21 15: Eos % (Auto) 2.9 % 10/01/21 15:32 Baso % (Auto) 0.9 % 10/01/21 15:32 Neut # (Auto) 6.21 10^3/uL (1.8-7.7) 10/01/21 15:32 Lymph # (Auto) 1.4 10^3/uL (0.8-4.8) 10/01/21 15:32 [place] # (Auto) 0.9 10^3/uL (0.2-0.9) 10/01/21 15:32 Eos # (Auto) 0.3 10^3/uL (0.0-0.8) 10/01/21 15:32 Baso # (Auto) 0.1 10^3/uL (0.0-0.1) 10/01/21 15:32 Nucleated RBC % (auto) 0 % 10/01/21 15:32 Nucleated RBCs # 0.0 /100WBC 10/01/21 15:32 PT 13.30 SECONDS (12.1-14.9) 10/01/21 15:32 INR 0.98 (0.8-1.2) 10/01/21 15:32 APTT 27.7 SECONDS (23.9-36.7) 10/01/21 15:32 Sodium 135 mmol/L (136-145) L 10/01/21 15:32 Potassium 4.4 mmol/L (3.5-5.1) 10/01/21 15:32 Chloride 98 mmol/L (98-107) 10/01/21 15:32 Carbon Dioxide 24 mmol/L (22-29) 10/01/21 15:32 Anion Gap 17.4 (5-19) 10/01/21 15:32 BUN 28 mg/dL (8-23) H 10/01/21 15:32 Creatinine 1.2 mg/dL (0.7-1.2) 10/01/21 15:32 GFR Calculation Not Reportable 10/01/21 15:32 Glucose 164 mg/dL (65-115) H 10/01/21 15:32 Calculated Osmolality 289 mOsm/kg (285-295) 10/01/21 15:32 Calcium 9.4 mg/dL (8.5-10.5) 10/01/21 15:32 Total Bilirubin 0.2 mg/dL (0.15-1.2) 10/01/21 15:32 AST 13 U/L (0-40) 10/01/21 15:32 ALT 13 U/L (0-41) 10/01/21 15:32 Alkaline Phosphatase 86 IU/L (40-130) 10/01/21 15:32 Total Protein 6.8 g/dL (6.6-8.7) 10/01/21 15:32 Albumin 4.2 g/dL (3.5-5.2) 10/01/21 15:32 Globulin 2.6 g/dL (1.3-4.6) 10/01/21 15:32 Lipase 21 U/L (13-60) 10/01/21 15:32 Blood Type O Positive 10/01/21 16:19 Rho(D) Type Positive 10/01/21 16:19 Antibody Screen Negative 10/01/21 16:19 Crossmatch See Detail 10/01/21 16:19 EKG Data EKG 1: EKG interpretation date: 10/01/21 EKG interpretation time: 14:51 Computer generated interpretation: Sinus rhythm with frequent PVCs ventricular rate 98 bpm GA interval 175 ms QRS duration 99 ms QT is 3/52 ms Discharge Plan Discharge Admit Provider: Kyrie Ennis Condition: Stable Discharge Orders: Discharge Order (Routine); Ordered 10/02/21 Ordered By: Kyrie Ennis Discharge Diet: Diabetic Discharge Activity: Resume usual activity Coding Level of Care Code ED Tin Tie Machine Operator Automatic for Chg Fwd Exam Comprehensive Documented by User: Piter Argueta DO 10/06/21 06:47 HPI - Weakness General: Chief complaint: Weakness Stated complaint: Black stool, prev GI surg Time Seen by Provider: 10/01/21 14:30 PFSH ED PFSH: Medical History (Updated 10/01/21 @ 21:46 by Kyrie Ennis MD) Diabetes Hypertension Course Vital Signs: Vital signs: Vital Signs Temperature 98.5 F 10/02/21 11:14 Pulse Rate 94 10/02/21 11:14 Respiratory Rate 16 10/02/21 11:14 Blood Pressure 121/73 10/02/21 11:14 Pulse Oximetry 95 10/02/21 11:14 MDM - Weakness Medical Decision Making Discussed case with Dr. Perez and then spoke with hospitalist Dr. Ennis patient will be admitted to the outpatient unit for 2 units of packed red blood cells this evening and follow-up with Dr. Lemos tomorrow or soon as possible. Chart reviewed and patient discussed with midlevel. Agree with assessment and plan. Patient to begiven 2 units of blood. She had chronic bleeding with an ongoing issue previous endoscopy so questioned whether or not these areas have been fully addressed. At this point is otherwise stable and just requires transfusion. Appropriate patient short term follow-up with Dr. Lemos tomorrow as an outpatient.. Lab Data : 10/02/21 04:55 10/01/21 15:32 Laboratory Results WBC 8.9 10^3/uL (4.0-10.0) 10/01/21 15:32 RBC 2.73 10^6/uL (4.1-5.3) L 10/01/21 15:32 Hgb 7.2 g/dL (11.7-16.6) L 10/01/21 15:32 Hct 23.5 % (42.0-52.0) L 10/01/21 15:32 MCV 86.1 fl (80-94) 10/01/21 15:32 MCH 26.4 pg (28.0-34.0) L 10/01/21 15:32 MCHC 30.6 g/dL (30.0-36.0) 10/01/21 15:32 RDW 18.1 % (12.1-15.1) H 10/01/21 15:32 Plt Count 417 10^3/cmm (130-400) H 10/01/21 15:32 MPV 9.8 fL (7.4-10.4) 10/01/21 15:32 Neut % (Auto) 69.7 % 10/01/21 15:32 Lymph % (Auto) 15.6 % 10/01/21 15:32 [place] % (Auto) 10.5 % 10/01/21 15:32 Eos % (Auto) 2.9 % 10/01/21 15:32 Baso % (Auto) 0.9 % 10/01/21 15:32 Neut # (Auto) 6.21 10^3/uL (1.8-7.7) 10/01/21 15:32 Lymph # (Auto) 1.4 10^3/uL (0.8-4.8) 10/01/21 15:32 [place] # (Auto) 0.9 10^3/uL (0.2-0.9) 10/01/21 15:32 Eos # (Auto) 0.3 10^3/uL (0.0-0.8) 10/01/21 15:32 Baso # (Auto) 0.1 10^3/uL (0.0-0.1) 10/01/21 15:32 Nucleated RBC % (auto) 0 % 10/01/21 15: Nucleated RBCs # 0.0 /100WBC 10/01/21 15:32 PT 13.30 SECONDS (12.1-14.9) 10/01/21 15:32 INR 0.98 (0.8-1.2) 10/01/21 15:32 APTT 27.7 SECONDS (23.9-36.7) 10/01/21 15:32 Sodium 135 mmol/L (136-145) L 10/01/21 15:32 Potassium 4.4 mmol/L (3.5-5.1) 10/01/21 15:32 Chloride 98 mmol/L (98-107) 10/01/21 15:32 Carbon Dioxide 24 mmol/L (22-29) 10/01/21 15:32 Anion Gap 17.4 (5-19) 10/01/21 15:32 BUN 28 mg/dL (8-23) H 10/01/21 15:32 Creatinine 1.2 mg/dL (0.7-1.2) 10/01/21 15:32 GFR Calculation Not Reportable 10/01/21 15:32 Glucose 164 mg/dL (65-115) H 10/01/21 15:32 Calculated Osmolality 289 mOsm/kg (285-295) 10/01/21 15:32 Calcium 9.4 mg/dL (8.5-10.5) 10/01/21 15:32 Total Bilirubin 0.2 mg/dL (0.15-1.2) 10/01/21 15:32 AST 13 U/L (0-40) 10/01/21 15:32 ALT 13 U/L (0-41) 10/01/21 15:32 Alkaline Phosphatase 86 IU/L (40-130) 10/01/21 15:32 Total Protein 6.8 g/dL (6.6-8.7) 10/01/21 15:32 Albumin 4.2 g/dL (3.5-5.2) 10/01/21 15:32 Globulin 2.6 g/dL (1.3-4.6) 10/01/21 15:32 Lipase 21 U/L (13-60) 10/01/21 15:32 Blood Type O Positive 10/01/21 16:19 Rho(D) Type Positive 10/01/21 16:19 Antibody Screen Negative 10/01/21 16:19 Crossmatch See Detail 10/01/21 16:19 Discharge Plan Discharge Admit Provider: Kyrie Ennis Condition: Stable Discharge Orders: Discharge Order (Routine); Ordered 10/02/21 Ordered By: Kyrie Ennis Discharge Diet: Diabetic Discharge Activity: Resume usual activity Coding Level of Care Code ED Tin Tie Machine Operator Automatic for Chg Fwd Exam Comprehensive
[2021-10-01 15:56] LABS: Basophils # 0.1 10^3/uL (0.0-0.1); Basophils % 0.9 %; Eosinophils # 0.3 10^3/uL (0.0-0.8); Eosinophils % 2.9 %; Hematocrit 23.5 % (42.0-52.0); Hemoglobin 7.2 g/dL (11.7-16.6); Lymphocytes # 1.4 10^3/uL (0.8-4.8); Lymphocytes % 15.6 %; Mean Corpuscular HGB Conc 30.6 g/dL (30.0-36.0); Mean Corpuscular Hemoglobin 26.4 pg (28.0-34.0); Mean Corpuscular Volume 86.1 fl (80-94); Mean Platelet Volume 9.8 fL (7.4-10.4); Monocytes # 0.9 10^3/uL (0.2-0.9); Monocytes % 10.5 %; Neutrophils # 6.21 10^3/uL (1.8-7.7); Neutrophils % 69.7 %; Nucleated Red Blood Cells % 0 %; Platelet Count 417 10^3/cmm (130-400); Red Blood Count 2.73 10^6/uL (4.1-5.3); Red Cell Distribution Width 18.1 % (12.1-15.1); White Blood Count 8.9 10^3/uL (4.0-10.0)
[2021-10-01 16:19] LABS: INR 0.98 (0.8-1.2)
[2021-10-01 16:21] LABS: Partial Thromboplastin Time 27.7 SECONDS (23.9-36.7)
[2021-10-01 16:31] LABS: Alanine Aminotransferase 13 U/L (0-41); Albumin Level 4.2 g/dL (3.5-5.2); Alkaline Phosphatase 86 IU/L (40-130); Anion Gap 17.4 (5-19); Aspartate Amino Transferase 13 U/L (0-40); Blood Urea Nitrogen 28 mg/dL (8-23); Calcium 9.4 mg/dL (8.5-10.5); Carbon Dioxide 24 mmol/L (22-29); Chloride 98 mmol/L (98-107); Globulin 2.6 g/dL (1.3-4.6); Glucose 164 mg/dL (65-115); Lipase 21 U/L (13-60); Osmolality Calculated 289 mOsm/kg (285-295); Potassium 4.4 mmol/L (3.5-5.1); Sodium 135 mmol/L (136-145); Total Bilirubin 0.2 mg/dL (0.15-1.2); Total Protein 6.8 g/dL (6.6-8.7)
[2021-10-01 19:42] VITALS: BMI 34.5
[2021-10-01 20:31] VITALS: BP 137/83; PULSE 96; RESP 16; TEMP 36.6; O2SAT 95
[2021-10-01 20:48] VITALS: BP 127/77; PULSE 91; RESP 18; TEMP 36.8; O2SAT 96
[2021-10-01 21:03] VITALS: BP 130/70; PULSE 82; RESP 18; TEMP 36.8; O2SAT 95
--- NOTE | 2021-10-01 21:39 | PM.HP ---
Providers/Chief Complaint Admitting Physician: Kyrie Ennis MD Primary Care Provider: Lidia Infante MD Chief Complaint: Black stool, prev GI surg History of Present Illness Avni Graves is a 81 year old male w/ h/o HTN, DM, hypothyroid, anemia, GI bleed came to the ED c/o weakness and fatigue. Pt was recommended to be transferred to tertiary center for further w/u of GI bleed but pt wants to receive the blood transfusion and f/u wit his GI MD for the EGD/Colonoscopy. Pt understood the risk of not. Has some weakness and fatigue. Passing black stool for the last 6 wks at least. Had endocopy then and found to have polyp in colon. This was excised. His chr rectal bleed did not stop however. He has BM daily w/ intermittent constipation. DEnies N/V, diarrhea. At times has mild lower abdominal discomfort. Denied CP, SOB, dizziness, palpitation. Pt is being admitted for GI bleed for blood transfusion. Review of Systems Narrative: Constitutional: fatigue and weakness HEENT: Denied RAMOS, visual changes, sore throat CVS: denied CP, PND, edema Resp: mild GREEN and cough Abd: has constipation, black tarry stool. denied N/V Skeletal: denied jt pain, swell AOC DIRECTOR COMBAT OPERATIONS OFFICER: denied RAMOS, loss of balance, weakness, seizure Endocrine: Has DM, Thy dis Psych: denied depress, anx Medications/Allergies Home Medications Medication Instructions Recorded Confirmed Last Taken Type amitriptyline 10 mg tablet 10 mg PO BEDTIME@219912/16/20 10/01/21 09/30/21 History beclomethasone dipropionate 80 1 inh INHALATION BID 12/16/20 10/01/21 10/01/21 08:00 History mcg/actuation HFA breath activated aerosol (Qvar RediHaler) duloxetine 60 mg capsule,delayed 60 mg PO BID@0900,0 12/16/20 10/01/21 10/01/21 08:00 History release furosemide 40 mg tablet 40 mg PO DAILY@0912/16/20 10/01/21 10/01/21 History glimepiride 1 mg tablet 1 mg PO DAILY@0912/16/20 10/01/21 10/01/21 History isosorbide mononitrate 30 mg 30 mg PO DAILY@0900 12/16/20 10/01/21 10/01/21 History tablet,extended release 24 hr losartan 50 mg tablet 25 mg PO QPM 12/16/20 10/01/21 09/30/21 History metformin 500 mg tablet,extended 1,000 mg PO QPM 12/16/20 10/01/21 09/30/21 History release 24 hr montelukast 10 mg tablet 10 mg PO QPM 12/16/20 10/01/21 09/30/21 History pantoprazole 40 mg tablet,delayed 40 mg PO BID@0900,2200 12/16/20 10/01/21 10/01/21 08:00 History release potassium chloride 20 mEq 20 meq PO DAILY 12/16/20 10/01/21 09/30/21 History tablet,extended release(part/cryst) (Klor-Con M) sitagliptin 100 mg tablet (Januvia) 100 mg PO DAILY@0900 12/16/20 10/01/21 10/01/21 History spironolactone 25 mg tablet 25 mg PO DAILY@0900 12/16/20 10/01/21 10/01/21 History terazosin 5 mg capsule 5 mg PO BEDTIME@219912/16/20 10/01/21 09/30/21 History trazodone 50 mg tablet 50 mg PO BEDTIME@219912/16/20 10/01/21 09/30/21 History zinc 50 mg tablet 50 mg PO DAILY 12/16/20 10/01/21 12/15/20 History atorvastatin 40 mg tablet 40 mg PO QPM 08/24/21 10/01/21 09/30/21 History salmeterol 50 mcg/dose blister 1 inh INHALATION BID 08/24/21 10/01/21 10/01/21 08:00 History powder for inhalation (Serevent Diskus) ticagrelor 90 mg tablet (Brilinta) 90 mg PO BID 08/24/21 10/01/21 10/01/21 08:00 History cholecalciferol (vitamin D3) 25 7,000 unit PO DAILY 10/01/21 10/01/21 Unknown History mcg (1,000 unit) tablet (Vitamin D3) ferrous sulfate 325 mg (65 mg 325 mg PO QAM 10/01/21 10/01/21 10/01/21 History iron) tablet (iron) nitroglycerin 0.4 mg sublingual 0.4 mg SUBLINGUAL Q5M PRN 10/01/21 10/01/21 Unknown History tablet (Nitrostat) Allergies Allergy/AdvReac Type Severity Reaction Status Date / Time No Known Allergies Allergy Verified 10/01/21 17:05 PFSH Acute PFSH: Medical History (Updated 10/01/21 @ 21:46 by Kyrie Ennis MD) Diabetes Hypertension Vitals/I&O/Wt Last Vital Signs Temp 98.2 F 10/01/21 20:48 Pulse 91 10/01/21 20:48 Resp 18 10/01/21 20:48 BP 127/77 10/01/21 20:48 Pulse Ox 96 10/01/21 20:48 10/01/21 10/01/21 10/01/21 06:59 14:59 22:59 Intake Total 0 / 0 Balance 0 / 0 Weight last 48 hrs Weight 106.141 kg Weight 102.058 kg Physical Exam Narrative: NAD HEENT: EOMI, PERLLA, Thr (-), Nose clear, Conj pale Neck: supple, Thy (-), LN (-), Bruit (-) CVS: S1S2, Tachy, Mur (-) Resp: BS+ CTA Abd: Soft, NT, BS+, HSM (-) Edema (-) Skeletal no deformity 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 Pt understands this wants to be admitted for the blood transfusion only. Continue home meds SSI Attestations Medical Necessity Statement*: Pt is acutely anemic and symptomatic fro GI bleed. Neing admitted for blood transfusion. To have outpt endoscopy w/ his GI MD Time Spent in Patient Care: 45 min Coding Level of Care Code Acute Store Team Member for [facility] Fwd Diagnoses Acute blood loss anemia D62 GI bleed K92.2 Diabetes mellitus type 2 in obese E11.69; E66.9
[2021-10-01] MEDS: trazodone 50 mg Tablet PO (22:07)
[2021-10-01] MEDS: duloxetine 60 mg Capsule PO (22:07)
[2021-10-01] MEDS: pantoprazole DR 40 mg Tablet PO (22:07)
[2021-10-01 23:40] VITALS: BP 129/72; PULSE 81; RESP 16; TEMP 36.8; O2SAT 96
[2021-10-01 23:50] VITALS: BP 130/70; PULSE 82; RESP 18; TEMP 36.8; O2SAT 95
[2021-10-02] VITALS: BP 132/74; BP 133/74; PULSE 86; PULSE 88; RESP 17; RESP 18; TEMP 36.7; TEMP 37; O2SAT 94; O2SAT 96
[2021-10-02 00:30] VITALS: BP 128/68; PULSE 89; RESP 18; TEMP 36.7; O2SAT 96
[2021-10-02 04:00] VITALS: BP 128/70; PULSE 80; RESP 17; O2SAT 94
[2021-10-02 05:08] LABS: Basophils # 0.1 10^3/uL (0.0-0.1); Basophils % 0.9 %; Eosinophils # 0.3 10^3/uL (0.0-0.8); Eosinophils % 3.9 %; Hematocrit 29.8 % (42.0-52.0); Hemoglobin 9.1 g/dL (11.7-16.6); Lymphocytes # 1.3 10^3/uL (0.8-4.8); Lymphocytes % 14.9 %; Mean Corpuscular HGB Conc 30.5 g/dL (30.0-36.0); Mean Corpuscular Hemoglobin 27.4 pg (28.0-34.0); Mean Corpuscular Volume 89.8 fl (80-94); Mean Platelet Volume 9.6 fL (7.4-10.4); Monocytes # 1.1 10^3/uL (0.2-0.9); Monocytes % 12.1 %; Neutrophils # 5.98 10^3/uL (1.8-7.7); Neutrophils % 67.7 %; Nucleated Red Blood Cells % 0 %; Platelet Count 365 10^3/cmm (130-400); Red Blood Count 3.32 10^6/uL (4.1-5.3); Red Cell Distribution Width 17.3 % (12.1-15.1); White Blood Count 8.8 10^3/uL (4.0-10.0)
[2021-10-02] MEDS: ferrous sulfate EC 325 mg Tablet PO (05:55)
[2021-10-02 06:38] LABS: Glucose Point of Care 137 mg/dL (70-110)
[2021-10-02 07:31] VITALS: BP 141/75; PULSE 125; RESP 16; TEMP 37; O2SAT 90
[2021-10-02] MEDS: FUROsemide 40 mg Tablet PO (07:49)
[2021-10-02] MEDS: pantoprazole DR 40 mg Tablet PO (07:49)
[2021-10-02] MEDS: zinc gluconate 50 mg Tablet PO (07:49)
[2021-10-02] MEDS: sitagliptin 100 mg Tablet PO (07:49)
[2021-10-02] MEDS: duloxetine 60 mg Capsule PO (07:49)
[2021-10-02] MEDS: isosorbide mononitrate ER 30 mg Tablet PO (07:49)
[2021-10-02] MEDS: spironolactone 25 mg Tablet PO (07:50)
[2021-10-02] MEDS: potassium chloride ER 20 mEq Tablet PO (07:50)
[2021-10-02 08:22] VITALS: PULSE 91; RESP 18; O2SAT 94
[2021-10-02] MEDS: metformin XR 500 MG Tablet 1000 MG PO (09:20)
--- NOTE | 2021-10-02 10:12 | PC.CHAP ---
Pastoral Care Encounter/Spiritual Assessment Type of Contact [] Declined magnaflux operator visit [] Patient/Family/Request visit [] Outpatient visit [] Follow-up visit [] Physician referral [] Code/Alert [x] Routine visit [] Staff referral [] Actively dying [] Patient sleeping [] Family support [] [] Out of room [] Palliative care [] [x] Receiving care in room [] Pre-surgical visit [] Trauma [] Long length of stay [] ICU visit [x] Other: with staff care Relational/Emotional Strength [] Patient feels connected with others/family/visitors/staff [] Distress [] Loneliness/isolation [] Abandonment Spirituality of Patient [] Person of Sadaf [] Attends Zoroastrian of their Sadaf [] Believes in Prayer [] Reads Bible or Religion materials [] There are Spiritual issues to be addressed Block Out Machine Operator Interventions [] Prayer [] Active listening [] Non-anxious presence [] Spiritual/emotional support [] Crisis/trauma care [] Spiritual counseling [] Bereavement support [] Provided bereavement packet [] Provided Bible/devotional materials [] Provided toy/stuffed animal, coloring book to patient or family member [] Provided Communion [] Anointing/[facility] [] Salvation [] Completed spiritual assessment [] Other: Impact on Illness or Injury [] Angry [] Fearful [] Anxious [] Often cries [] Exhaustion [] Unable to work [] Unable to attend anabaptism [] Unable to walk/stand [] Unable to read [] Unable to drive [] Unable to eat/drink [] Unable to sleep [] Unable to be with family [] Patient intubated [] Other: Summary with staff care Time spent with patient 5 mins
[2021-10-02 11:14] VITALS: BP 121/73; PULSE 94; RESP 16; TEMP 36.9; O2SAT 95
[2021-10-02 11:23] LABS: Glucose Point of Care 258 mg/dL (70-110)
--- NOTE | 2021-10-02 12:09 | P.DS_ITS ---
Discharge Providers Date of Admission: 10/01/21 17:17 Date of Discharge: October 02, 2021 Attending Provider at Admission: Kyrie Ennis MD Attending Provider at Discharge: Kyrie Ennis MD Primary Care Provider: Lidia Infante MD Diagnoses at Discharge Discharge Diagnosis (1) Acute blood loss anemia: Status: Acute (2) GI bleed: Status: Acute (3) Diabetes mellitus type 2 in obese: Status: Acute Reason for Visit Reason for Visit: Black stool, prev GI surg Hospital Course Hospital Course Avni Graves is a 81 year old male w/ h/o HTN, DM, hypothyroid, anemia, GI bl eed came to the ED c/o weakness and fatigue. Pt was recommended to be transferred to? tertiary center for further w/u of GI bleed but pt wants to receive the blood transfusion and f/u wit his GI MD for the EGD/Colonoscopy. Pt understood the risk of not. Has some weakness and fatigue. Passing black stool for the last 6 wks at least. Had endocopy then and found to have polyp in colon. This was excised. His chr rectal bleed did not stop however. He has BM daily w/ intermittent constipation. DEnies N/V, diarrhea. At times has mild lower abdominal discomfort. Denied CP, SOB, dizziness, palpitation. Pt is being admitted for GI bleed for blood transfusion. Pt was admitted to the medical floor for PRBC transfusion 2 U. Tolerated it well. His Hb improved to 9.1 from 7.2. Pt is to f/u w/ his GI MD for further evaluation of his rectal bleed w/ possible Endoscopy. Did not have any BM here. VSS were stable. Will hold Brilanta Physical Exam Narrative: NAD HEENT: EOMI, P ERLLA, Thr (-), No se clear, Conj pal e Neck: supple, Th y (-), LN (-), Bru it (-) CVS: S1S2, Tachy, Mur Sys2/6 Resp: BS+ CTA Abd: Soft, NT, BS+, HS M (-) Edema (-) Sk eletal no deformit y ORAL AND MAXILLOFACIAL SURGERY: A^Ox4, Non focal Discharge Data Studies Completed and Pending Pending at discharge Category Date Time Status Urinalysis Stat Lab 10/01/21 14:30 Uncollected Laboratory Results WBC 8.8 10^3/uL (4.0-10.0) 10/02/21 04:55 RBC 3.32 10^6/uL (4.1-5.3) L 10/02/21 04:55 Hgb 9.1 g/dL (11.7-16.6) L 10/02/21 04:55 Hct 29.8 % (42.0-52.0) L 10/02/21 04:55 MCV 89.8 fl (80-94) 10/02/21 04:55 MCH 27.4 pg (28.0-34.0) L 10/02/21 04:55 MCHC 30.5 g/dL (30.0-36.0) 10/02/21 04:55 RDW 17.3 % (12.1-15.1) H 10/02/21 04:55 Plt Count 365 10^3/cmm (130-400) 10/02/21 04:55 MPV 9.6 fL (7.4-10.4) 10/02/21 04:55 Neut % (Auto) 67.7 % 10/02/21 04:55 Lymph % (Auto) 14.9 % 10/02/21 04:55 [place] % (Auto) 12.1 % 10/02/21 04:55 Eos % (Auto) 3.9 % 10/02/21 04:55 Baso % (Auto) 0.9 % 10/02/21 04:55 Neut # (Auto) 5.98 10^3/uL (1.8-7.7) 10/02/21 04:55 Lymph # (Auto) 1.3 10^3/uL (0.8-4.8) 10/02/21 04:55 [place] # (Auto) 1.1 10^3/uL (0.2-0.9) H 10/02/21 04:55 Eos # (Auto) 0.3 10^3/uL (0.0-0.8) 10/02/21 04:55 Baso # (Auto) 0.1 10^3/uL (0.0-0.1) 10/02/21 04:55 Nucleated RBC % (auto) 0 % 10/02/21 04:55 Nucleated RBCs # 0.0 /100WBC 10/02/21 04:55 PT 13.30 SECONDS (12.1-14.9) 10/01/21 15:32 INR 0.98 (0.8-1.2) 10/01/21 15:32 APTT 27.7 SECONDS (23.9-36.7) 10/01/21 15:32 Sodium 135 mmol/L (136-145) L 10/01/21 15:32 Potassium 4.4 mmol/L (3.5-5.1) 10/01/21 15:32 Chloride 98 mmol/L (98-107) 10/01/21 15:32 Carbon Dioxide 24 mmol/L (22-29) 10/01/21 15:32 Anion Gap 17.4 (5-19) 10/01/21 15:32 BUN 28 mg/dL (8-23) H 10/01/21 15:32 Creatinine 1.2 mg/dL (0.7-1.2) 10/01/21 15:32 GFR Calculation Not Reportable 10/01/21 15:32 Glucose 164 mg/dL (65-115) H 10/01/21 15:32 POC Glucose 258 mg/dL (70-110) H 10/02/21 11:11 Calculated Osmolality 289 mOsm/kg (285-295) 10/01/21 15:32 Calcium 9.4 mg/dL (8.5-10.5) 10/01/21 15:32 Total Bilirubin 0.2 mg/dL (0.15-1.2) 10/01/21 15:32 AST 13 U/L (0-40) 10/01/21 15:32 ALT 13 U/L (0-41) 10/01/21 15:32 Alkaline Phosphatase 86 IU/L (40-130) 10/01/21 15:32 Total Protein 6.8 g/dL (6.6-8.7) 10/01/21 15:32 Albumin 4.2 g/dL (3.5-5.2) 10/01/21 15:32 Globulin 2.6 g/dL (1.3-4.6) 10/01/21 15:32 Lipase 21 U/L (13-60) 10/01/21 15:32 Blood Type O Positive 10/01/21 16:19 Rho(D) Type Positive 10/01/21 16:19 Antibody Screen Negative 10/01/21 16:19 Crossmatch See Detail 10/01/21 16:19 Vitals Last Vital Signs Temp 98.5 F 10/02/21 11:14 Pulse 94 10/02/21 11:14 Resp 16 10/02/21 11:14 BP 121/73 10/02/21 11:14 Pulse Ox 95 10/02/21 11:14 Discharge Plan Discharge Patient Disposition: Home Condition: Stable Prescriptions: Continued losartan 50 mg tablet 25 mg PO QPM 0RF furosemide 40 mg tablet 40 mg PO DAILY@0900 0RF terazosin 5 mg capsule 5 mg PO BEDTIME@2200 0RF trazodone 50 mg tablet 50 mg PO BEDTIME@2200 0RF isosorbide mononitrate 30 mg tablet extended release 24 hr 30 mg PO DAILY@0900 0RF spironolactone 25 mg tablet 25 mg PO DAILY@0900 0RF glimepiride 1 mg tablet 1 mg PO DAILY@0900 0RF potassium chloride [Klor-Con M20] 20 mEq tablet,ER particles/crystals 20 meq PO DAILY 0RF amitriptyline 10 mg tablet 10 mg PO BEDTIME@2200 0RF pantoprazole 40 mg tablet,delayed release (DR/EC) 40 mg PO BID@0900,2200 0RF montelukast 10 mg tablet 10 mg PO QPM 0RF metformin 500 mg tablet extended release 24 hr 1,000 mg PO QPM 0RF duloxetine 60 mg capsule,delayed release(DR/EC) 60 mg PO BID@0900,2200 0RF Qvar RediHaler 80 mcg/actuation HFA aerosol breath activated 1 inh INHALATION BID 0RF zinc 50 mg Tablet 50 mg PO DAILY 0RF atorvastatin 40 mg Tablet 40 mg PO QPM 0RF Serevent Diskus 50 mcg/dose Blister With Device 1 inh INHALATION BID 0RF Nitrostat 0.4 mg Tablet, Sublingual 0.4 mg SUBLINGUAL Q5M PRN (Reason: Chest Pain) 0RF Rx Instructions: do not exceed 3 doses per episode Vitamin D3 25 mcg (1,000 unit) Tablet 7,000 unit PO DAILY 0RF Held Brilinta 90 mg Tablet 90 mg PO BID 0RF Hold Instructions: Resume on 09/02/21. No Action Januvia 100 mg tablet 100 mg PO DAILY@0900 0RF iron 325 mg (65 mg iron) Tablet 325 mg PO QAM 0RF Discharge Orders: Discharge Order (Routine); Ordered 10/02/21 Ordered By: Kyrie Ennis Referrals: Lidia Infante MD [Primary Care Provider] - 10/10/21 9:15 am Discharge Diet: Diabetic Discharge Activity: Resume usual activity Patient Instructions: Opioid Safety Discharge Attestations Time Spent in Discharge Care*: greater than 30 min Time Spent in Smoking Cessation: 35 min Quality Metrics Clinical Quality Measures [ No reported AMI, CVA or VTE this stay] Coding Level of Care Code Acute Chg FW DC note Diagnoses Acute blood loss anemia D62 GI bleed K92.2 Diabetes mellitus type 2 in obese E11.69; E66.9
[2021-10-02] MEDS: insulin lispro 100 unit/1 mL SUBCUT (12:17)
== END 2021-10-02 14:00 | disposition home or self-care (01) ==
LOC: ER 17:17 → MEDSURG 18:29
PROVIDERS: Admitting Provider Internal Medicine; Emergency Provider Nurse Practitioner Family; PCP Family Medicine; Visit Provider Internal Medicine
DX: D62 Acute posthemorrhagic anemia (principal); K92.2 Gastrointestinal hemorrhage, unspecified; E11.69 Type 2 diabetes mellitus with other specified complication; I10 Essential (primary) hypertension
CPT/HCPCS: 36415; 36416; 36430; 80053; 82962; 83690; 85025; 85610; 85730; 86850; 86900; 86920; 93005; 99285; G0378; J1815; P9016